=== PATIENT | female | born 1945 | race Caucasian/White ===

== ENCOUNTER 2016-08-01 15:43 | Inpatient (IN) | payer MEDICARE, BC, MEDICAID ==
[2016-08-01 16:25] LABS: #Basophils 0.1 thou/uL (0.0-0.2); #Eosinphils 0.1 thou/uL (0.0-0.7); #Lymphocytes 0.8 thou/uL (1.20-3.40); #Monocytes 1.3 thou/uL (0.11-0.59); %Basophils 0.8 % (0.0-1.0); %Eosinophils 0.7 % (0.0-10.0); %Monocytes 11.6 % (0.0-10.0); Hematocrit 35.9 % (36.0-47.0); Mean Platelet Volume 8.7 fL (7.4-10.4); Red Blood Cell (RBC) Count 3.83 mill/uL (4.20-5.40); White Blood Cell (WBC) Count 11.3 thou/uL (4.8-10.8)
[2016-08-01 16:32] LABS: PTT 27.1 SEC (22.9-36.1)
[2016-08-01 16:39] LABS: Lactic Acid - Sepsis 2.5 mmol/L (0.5-2.2)
[2016-08-01 16:42] LABS: ALT (SGPT) 27 U/L (0-55); AST (SGOT) 11 U/L (5-34); Alkaline Phosphatase 101 U/L (40-150); Anion Gap 16 mmol/L (10-20); BUN (Urea Nitrogen) 20 mg/dL (9.8-20.1); Bilirubin, Total 0.2 mg/dL (0.2-1.2); Calc. Creatinine Clearance 0 mL/min (70-130); Calcium 9.9 mg/dL (7.8-10.44); Carbon Dioxide 21 mmol/L (23-31); Chloride 103 mmol/L (98-107); Estimated GFR-MDRD 58; Globulin 3.1 g/dL (2.4-3.5); Protein, Total 6.5 g/dL (5.8-8.1)
[2016-08-01 17:22] LABS: Bacteria/HPF 1+ HPF (None Seen); Bilirubin Negative (Negative); Blood, Urine Trace (Negative); Glucose, Urine (Dipstick) Negative (Negative); Ketone, Urine Negative (Negative); Nitrite Positive (Negative); Protein, Urine (Dipstick) 100 mg/dL (Neg-Trace); RBC/HPF 0-3 HPF (0-3); Squamous Epithelial 0-3 HPF (0-3); Urobilinogen 0.2 mg/dL (0.2-1.0); WBC/HPF 21-50 HPF (0-3)
[2016-08-01] MEDS ORDERED: Sodium Chloride 0.9% 100 ML ONE (17:28)
[2016-08-01] MEDS ORDERED: cefTRIAXone\\ROCEPHIN 1 GM VIAL ONE (17:28)
--- NOTE | 2016-08-01 18:27 | ERRECORD ---
[facility] EMERGENCY RECORD HPI WEAK-DIZZY (16:09 JPIP) CHIEF COMPLAINT: Patient presents for evaluation of weakness, Patient presents for evaluation of dizziness, Patient presents for evaluation of has felt dizzy with some weakness for 2 days. HISTORIAN: History provided by patient, Additional history obtained from retirement, Additional history obtained from EMS. LOCATION: No localizing symptoms. QUALITY: Patient is alert and oriented to person, place and time, [place] coma score is 15. SEVERITY: Current severity of pain rated as 0/10. TIME COURSE: Sudden onset of symptoms, 2, days ago, There has been no change in the patient's symptoms over time, are constant. ASSOCIATED WITH: No associated chest pain, No associated headache, No associated nausea, No associated palpitations, No associated vomiting. EXACERBATED BY: Patient's condition exacerbated by exercise. RELIEVED BY: Patient's condition relieved by remaining still. ROS (16:11 JPIP) CONSTITUTIONAL: Historian denies chills, reports fatigue, denies fever, reports malaise. EYES: Historian denies vision changes. CARDIOVASCULAR: Historian denies chest pain, denies dyspnea on exertion, denies palpitations. RESPIRATORY: Historian denies cough, reports shortness of breath, denies wheezing. GI: Historian denies nausea, denies vomiting. GENITOURINARY FEMALE: Historian denies dysuria. MUSCULOSKELETAL: Historian denies arthralgias, denies myalgias. SKIN: Historian denies rash, denies skin changes, denies skin lesions. NEUROLOGIC: Historian reports dizziness, denies headache. NOTES: All systems reviewed, negative except as described above. PAST MEDICAL HISTORY MEDICAL HISTORY: Past medical history includes history of diabetes, Type II, Past medical history includes vascular disease history, peripheral vascular disease, Notes: DEMENTI, SLEEP APNEA, ANEMIA, OSTEOPOROSIS, GENERALIZED WEAKNESS, RLS, Flu vaccine up to date, Tetanus immunization up to date, Pneumococcal vaccine up to date, Past medical history includes history of hyperlipidemia, Past medical history includes history of hypertension. , CAD. (16:19 JPIP) Past medical history includes hematological history, Anemia, Past medical history includes history of diabetes, Type II, Past medical history includes vascular disease history, peripheral vascular disease, Notes: DEMENTI, SLEEP APNEA, ANEMIA, OSTEOPOROSIS, GENERALIZED WEAKNESS, RLS, Flu vaccine up to &a-1R&a+25V*p+0X*r9766G*c202B*c15G*c2P*p-0X&a-25V&a+1R Name: Clara Esposito : 1945 F71 MedRec: [id number] AcctNum: [id number] Prepared: ThuAug 01, 2016 18:25 by Interface Page 1 of 6 pMD [facility] EMERGENCY RECORD date, Tetanus immunization up to date, Pneumococcal vaccine up to date, Past medical history includes history of hyperlipidemia, Past medical history includes history of hypertension. , CAD. (17:20 JSMI) FEMALE SURGICAL HISTORY: bilateral HIP, Left KNEE, Surgical history of cholecystectomy, Surgical history of hysterectomy. (16:19 JPIP) bilateral HIP, Left KNEE, Surgical history of cholecystectomy, Surgical history of hysterectomy. (17:20 JSMI) PSYCHIATRIC HISTORY: Psychiatric history includes, anxiety, depression, no history of suicidal ideations, No history of suicide attempts, Psychiatric history includes history of hallucinations, Notes: AFTER TAKING AMBIEN. (16:19 JPIP) Psychiatric history includes, anxiety, depression, no history of suicidal ideations, No history of suicide attempts, Psychiatric history includes history of hallucinations, Notes: AFTER TAKING AMBIEN. (17:20 JSMI) SOCIAL HISTORY: Patient denies alcohol use, Patient denies drug use, Patient has no smoking history, Lives at home. (16:19 JPIP) Social History includes patient told me she is a smoker, however she reported to nursing staff she is not a smoker, old chart states no smoking history. (16:19 JPIP) Patient denies alcohol use, Patient denies drug use, Patient has no smoking history, Lives at home. (17:20 JSMI) NOTES: Nursing records reviewed, Medication list reviewed. (16:15 JPIP) KNOWN ALLERGIES zolpidem tartrate: Reaction: HALLUCINATIONS CURRENT MEDICATIONS Cymbalta: CAPSULE,DELAYED RELEASE (ENTERIC COATED) : Strength - 60 mg : ORAL Patient Dose: 2 times a day. (17:26 JSMI) Pamelor: CAPSULE : Strength - 25 mg : ORAL Patient Dose: once a day (at bedtime). (17:26 JSMI) trospium: TABLET : Strength - 20 mg : ORAL Patient Dose: 60 mg once a day. (17:28 JSMI) Penlac: SOLUTION, NON-ORAL : Strength - 8 % : TOPICAL Patient Dose: once a day. (17:28 JSMI) ferrous gluconate: TABLET : Strength - 324 mg (36 mg iron) : ORAL Patient Dose: 2 times a day. (17:29 JSMI) Xanax: TABLET : Strength - 0.25 mg : ORAL Patient Dose: As Needed.TID PRN. (17:30 JSMI) &a-1R&a+25V*p+0X*s2416F*c202B*c15G*c2P*p-0X&a-25V&a+1R Name: Clara Esposito : 1945 F71 MedRec: [id number] AcctNum: [id number] Prepared: ThuAug 01, 2016 18:25 by Interface Page 2 of 6 pMD [facility] EMERGENCY RECORD Tylenol Arthritis Pain: TABLET, EXTENDED RELEASE : Strength - 650 mg : ORAL Patient Dose: As Needed.1 Q 4 hours as needed for temp >100.4. (17:31 JSMI) Tylenol-Codeine #3: TABLET : Strength - 300 mg-30 mg : ORAL Patient Dose: 2 tab(s) 2 times a day. (17:32 JSMI) Spiriva with HandiHaler: CAPSULE, WITH INHALATION DEVICE : Strength - 18 mcg : INHALATION Patient Dose: 2 puff(s) once a day. (17:38 JSMI) Caltrate-600 + D Vit D3 (800): TABLET : Strength - 600 mg calcium (1,500 mg)-800 unit : ORAL Patient Dose: once a day. (17:43 JSMI) risperiDONE: TABLET : Strength - 0.5 mg : ORAL Patient Dose: once a day (at bedtime). (17:43 JSMI) Shiloh: TABLET : Strength - 180 mg : ORAL Patient Dose: As Needed.every 24 hours as needed for allergies. (17:44 JSMI) metFORMIN: TABLET : Strength - 500 mg : ORAL Patient Dose: 2 times a day. (17:44 JSMI) Tussin DM: SYRUP : Strength - 100 mg-10 mg/5 mL : ORAL Patient Dose: 10 mL Oral every 4 hours prn. (17:45 JSMI) Maalox: SUSPENSION, ORAL (FINAL DOSE FORM) : Strength - 200 mg-200 mg-20 mg/5 mL : ORAL Patient Dose: 30 mL Oral As Needed. (17:45 JSMI) Protonix: TABLET, DELAYED RELEASE (ENTERIC COATED) : Strength - 40 mg : ORAL Patient Dose: once a day. (17:46 JSMI) Systane: DROPS : Strength - 0.3 %-0.4 % : OPHTHALMIC Patient Dose: 2 gtt every 8 hours PRN. (17:47 JSMI) Plavix: TABLET : Strength - 75 mg : ORAL Patient Dose: once a day. (17:47 JSMI) aspirin: TABLET : Strength - 325 mg : ORAL Patient Dose: once a day. (17:47 JSMI) Miralax: POWDER (GRAM) : Strength - 17 gram/dose : ORAL Patient Dose: once a day. (17:59 JSMI) gabapentin: CAPSULE : Strength - 100 mg : ORAL Patient Dose: 2 times a day. (18:00 JSMI) CAPSULE : Strength - 300 mg : ORAL &a-1R&a+25V*p+0X*d3070E*c202B*c15G*c2P*p-0X&a-25V&a+1R Name: Clara Esposito : 1945 F71 MedRec: [id number] AcctNum: [id number] Prepared: ThuAug 01, 2016 18:25 by Interface Page 3 of 6 pMD [facility] EMERGENCY RECORD Patient Dose: Unknown. (18:00 JSMI) Lipitor: TABLET : Strength - 10 mg : ORAL Patient Dose: once a day (at bedtime). (18:00 JSMI) Restoril: CAPSULE : Strength - 15 mg : ORAL Patient Dose: once a day (at bedtime). (18:01 JSMI) Requip: TABLET : Strength - 0.25 mg : ORAL Patient Dose: 0.75 mg Oral once a day (at bedtime). (18:01 JSMI) Milk of Magnesia: SUSPENSION, ORAL (FINAL DOSE FORM) : Strength - 400 mg/5 mL : ORAL Patient Dose: As Needed. (18:02 JSMI) Dulcolax (bisacodyl): SUPPOSITORY, RECTAL : Strength - 10 mg : RECTAL Patient Dose: As Needed. (18:06 JSKY) diltiazem HCl: CAPSULE, EXT RELEASE 24 HR : Strength - 120 mg : ORAL Patient Dose: once a day. (18:07 JSKY) VITAL SIGNS VITAL SIGNS: BP: 134/63, Pulse: 95, Resp: 16, Temp: 99.5 (Oral), Pain: 0, O2 sat: 90 on Room Air, Time: 08/01/2016 15:47. (15:47 JSMI) BP: 120/66, Pulse: 93, Resp: 20, Pain: 0, O2 sat: 95 on 2L Oxygen, Time: 08/01/2016 16:42. (16:42 JSMI) BP: 121/64, Pulse: 94, Resp: 24, Pain: 0, O2 sat: 94 on ra, Time: 08/01/2016 16:50. (16:50 JSMI) PHYSICAL EXAM (16:13 [facility]) CONSTITUTIONAL: Vital signs reviewed, Patient afebrile, Pulse normal, Blood pressure normal, Respiratory rate normal, Patient appears, uncomfortable, Patient alert and oriented to person, place and time. HEAD: Head exam included findings of head atraumatic, normocephalic. EYES: Eye exam included findings of eyelids normal to inspection, Conjunctiva normal, Sclera normal, no periorbital ecchymosis, no periorbital edema, no periorbital erythema. ENT: Pharynx exam normal, not injected, Uvula exam normal, midline, no edema, Mouth exam included findings of, mucous membranes dry, thick dry mucus with old blood present present, Teeth with, dentures. NECK: Neck exam included findings of normal range of motion, Trachea midline, no carotid bruits, no jugular venous distention, no cervical adenopathy, no tenderness. RESPIRATORY CHEST: Respiratory exam included findings of, mild respiratory distress, Breath sounds not clear, No wheezing, Rales present, to bilateral lower lobes, No rhonchi, Breath sounds not absent, Breath &a-1R&a+25V*p+0X*r8980Z*c202B*c15G*c2P*p-0X&a-25V&a+1R Name: Clara Esposito : 1945 F71 MedRec: [id number] AcctNum: [id number] Prepared: ThuAug 01, 2016 18:25 by Interface Page 4 of 6 pMD [facility] EMERGENCY RECORD sounds diminished. CARDIOVASCULAR: Cardiovascular exam included findings of heart rate regular rate and rhythm, Heart sounds normal. ABDOMEN FEMALE: Abdominal exam included findings of abdomen nontender, Liver normal, Spleen normal, no distension, no mass, no pulsatile masses, no peritoneal signs, no rigidity, no guarding, no rebound. BACK: Costovertebral angle tenderness, on the left. UPPER EXTREMITY: Upper extremity exam included findings of inspection normal, Range of motion normal. LOWER EXTREMITY: Lower extremity exam included findings of inspection normal, Range of motion normal, no edema. NEURO: Power coma scale 15, Speech normal, no nystagmus. SKIN: Skin exam included findings of skin warm, dry, and normal in color. LYMPHATIC: Lymphatic exam included findings of cervical nodes normal, Submandibular normal. PSYCHIATRIC: Psychiatric exam included findings of patient oriented to person place and time, Affect, flat. EKG INTERPRETATION (16:24 JPIP) MONITOR STRIP: supervisor twisting department strip interpreted by Emergency Department Physician, Monitor strip shows normal sinus rhythm, with no ectopics. 12 LEAD EKG INTERPRETATION: 12 lead EKG interpreted by Emergency Department Physician at time of study, 12 lead EKG shows normal sinus rhythm, Rate (beats per minute): 94, with no ectopics, Interpretation: normal EKG, Conduction normal, ST segments normal, T waves, inverted in leads 1-2, [place] normal, Clinical impression:, non-specific EKG. RADIOLOGYINTERPRETATION (17:21 JPIP) CHEST: Films of the chest show, interstitial infiltrate, no pneumothorax, no hemothorax, no pleural effusion, mild congestive heart failure. NETWORK TECHNOLOGY INSTRUCTOR: Preliminary review of x-rays by, ED Physician. MEDICATION ADMINISTRATION SUMMARY Drug Name: Rocephin injection, Dose Ordered: 2 g, Route: IV Piggy Back, Status: Given, Time: 17:39 08/01/2016, Drug Name: Normal Saline, Dose Ordered: 1000 mL/hr, Route: IV Fluid Infusion, Status: Given, Time: 17:22 08/01/2016, Detailed record available in Medication Service section. DOCTOR NOTES (17:40 JPIP) TEXT: discussed findings with patient and her son. He states she's had this happen "a couple of times before". &a-1R&a+25V*p+0X*q4500B*c202B*c15G*c2P*p-0X&a-25V&a+1R Name: Clara Esposito : 1945 71 MedRec: [id number] AcctNum: [id number] Prepared: ThuAug 01, 2016 18:25 by Interface Page 5 of 6 pMD [facility] EMERGENCY RECORD PROBLEM LIST No recorded problems DIAGNOSIS (17:39 JPIP) FINAL: PRIMARY: Acute cystitis without hematuria, ADDITIONAL: AMS, RO sepsis. PRESCRIPTION No recorded prescriptions DISPOSITION PATIENT: Disposition Type: Admit, Disposition: [facility], Disposition Transport: Stretcher, Condition: Improved. (17:39 JPIP) Patient left the department. (18:20 AHOO) Becker: AHOO=LEYDI Miller, October JPIP=DO Springer Joseph JSMI=SETH Varma, Kayla &a-1R&a+25V*p+0X*l9342H*c202B*c15G*c2P*p-0X&a-25V&a+1R Name: Clara Esposito : 1945 F71 MedRec: [id number] AcctNum: [id number] Prepared: ThuAug 01, 2016 18:25 by Interface Page 6 of 6 pMD MTDD
--- NOTE | 2016-08-01 18:33 | PICIS ---
[facility] EMERGENCY RECORD COMMUNICATIONS (17:43 JP) COMMUNICATIONS: Physician, contacted/paged at 1730, Reason for notification admission, Dr Sales accepts. TRIAGE (15:49 JSMI) PATIENT: NAME: Clara Esposito, AGE: 71, GENDER: female, : Thu1945, TIME OF GREET: ThuAug 01, 2016 15:43, PREFERRED LANGUAGE: Emirati, ETHNICITY: Not or , ECODE BILLING MAP: [facility], SSN: [id number], Zip Code: [address], KG WEIGHT: 68.04, PHONE: , , , PERSON ID: [id number], PAYMENT: [facility] Medicare, PCP: MD Damari, Mouna. (15:49 JSMI) COMPLAINT: AMS. (15:49 JSMI) ADMISSION: URGENCY: 3 Urgent, ADMISSION SOURCE: [facility], TRANSPORT: AMBULANCE - [facility], BED: TRIAGE. (15:49 JSMI) ASSESSMENT: Assessment: PT PRESENTS AWAKE ALERT AND ORIENTED. SKIN PALE WARM AND DRY., Symptoms began 07/30/2016. (17:20 JSMI) SIRS SCORING: Heart Rate 55-109 (0), Temp range 96.8-101.1 (0), respiratory rate 12-24 (0), Mental Status altered: no (0), Infection or Suspected Infection: No. (17:20 JSMI) PROVIDERS: TRIAGE NURSE: Jamee Varma RN. (15:49 JSMI) VITAL SIGNS: BP 134/63, Pulse 95, Resp 16, Temp 99.5, (Oral), Pain 0, O2 Sat 90, on Room Air, Time 08/01/2016 15:47. (15:47 JSMI) KNOWN ALLERGIES zolpidem tartrate: Reaction: HALLUCINATIONS CURRENT MEDICATIONS Cymbalta: CAPSULE,DELAYED RELEASE (ENTERIC COATED) : Strength - 60 mg : ORAL Patient Dose: 2 times a day. (17:26 JSMI) Pamelor: CAPSULE : Strength - 25 mg : ORAL Patient Dose: once a day (at bedtime). (17:26 JSMI) trospium: TABLET : Strength - 20 mg : ORAL Patient Dose: 60 mg once a day. (17:28 JSMI) Penlac: SOLUTION, NON-ORAL : Strength - 8 % : TOPICAL Patient Dose: once a day. (17:28 JSMI) ferrous gluconate: TABLET : Strength - 324 mg (36 mg iron) : ORAL Patient Dose: 2 times a day. (17:29 JSMI) Xanax: TABLET : Strength - 0.25 mg : ORAL Patient Dose: As Needed.TID PRN. (17:30 JSMI) Tylenol Arthritis Pain: TABLET, EXTENDED RELEASE : Strength - 650 mg : ORAL Patient Dose: As Needed.1 Q 4 hours as needed for temp >100.4. (17:31 JSMI) &a-1R&a+25V*p+0X*l6392I*c202B*c15G*c2P*p-0X&a-25V&a+1R Name: Clara Esposito : 1945 F71 MedRec: [id number] AcctNum: [id number] Prepared: ThuAug 01, 2016 18:31 by Interface Page 1 of 13 pMD [facility] EMERGENCY RECORD Tylenol-Codeine #3: TABLET : Strength - 300 mg-30 mg : ORAL Patient Dose: 2 tab(s) 2 times a day. (17:32 JSMI) Spiriva with HandiHaler: CAPSULE, WITH INHALATION DEVICE : Strength - 18 mcg : INHALATION Patient Dose: 2 puff(s) once a day. (17:38 JSMI) Caltrate-600 + D Vit D3 (800): TABLET : Strength - 600 mg calcium (1,500 mg)-800 unit : ORAL Patient Dose: once a day. (17:43 JSMI) risperiDONE: TABLET : Strength - 0.5 mg : ORAL Patient Dose: once a day (at bedtime). (17:43 JSMI) Shiloh: TABLET : Strength - 180 mg : ORAL Patient Dose: As Needed.every 24 hours as needed for allergies. (17:44 JSMI) metFORMIN: TABLET : Strength - 500 mg : ORAL Patient Dose: 2 times a day. (17:44 JSMI) Tussin DM: SYRUP : Strength - 100 mg-10 mg/5 mL : ORAL Patient Dose: 10 mL Oral every 4 hours prn. (17:45 JSMI) Maalox: SUSPENSION, ORAL (FINAL DOSE FORM) : Strength - 200 mg-200 mg-20 mg/5 mL : ORAL Patient Dose: 30 mL Oral As Needed. (17:45 JSMI) Protonix: TABLET, DELAYED RELEASE (ENTERIC COATED) : Strength - 40 mg : ORAL Patient Dose: once a day. (17:46 JSMI) Systane: DROPS : Strength - 0.3 %-0.4 % : OPHTHALMIC Patient Dose: 2 gtt every 8 hours PRN. (17:47 JSMI) Plavix: TABLET : Strength - 75 mg : ORAL Patient Dose: once a day. (17:47 JSMI) aspirin: TABLET : Strength - 325 mg : ORAL Patient Dose: once a day. (17:47 JSMI) Miralax: POWDER (GRAM) : Strength - 17 gram/dose : ORAL Patient Dose: once a day. (17:59 JSMI) gabapentin: CAPSULE : Strength - 100 mg : ORAL Patient Dose: 2 times a day. (18:00 JSMI) CAPSULE : Strength - 300 mg : ORAL Patient Dose: Unknown. (18:00 JSMI) Lipitor: TABLET : Strength - 10 mg : ORAL Patient Dose: once a day (at bedtime). (18:00 JSMI) &a-1R&a+25V*p+0X*t6177J*c202B*c15G*c2P*p-0X&a-25V&a+1R Name: Clara Esposito : 1945 F71 MedRec: [id number] AcctNum: [id number] Prepared: ThuAug 01, 2016 18:31 by Interface Page 2 of 13 pMD [facility] EMERGENCY RECORD Restoril: CAPSULE : Strength - 15 mg : ORAL Patient Dose: once a day (at bedtime). (18:01 JSMI) Requip: TABLET : Strength - 0.25 mg : ORAL Patient Dose: 0.75 mg Oral once a day (at bedtime). (18:01 JSMI) Milk of Magnesia: SUSPENSION, ORAL (FINAL DOSE FORM) : Strength - 400 mg/5 mL : ORAL Patient Dose: As Needed. (18:02 JSMI) Dulcolax (bisacodyl): SUPPOSITORY, RECTAL : Strength - 10 mg : RECTAL Patient Dose: As Needed. (18:06 JSMI) diltiazem HCl: CAPSULE, EXT RELEASE 24 HR : Strength - 120 mg : ORAL Patient Dose: once a day. (18:07 JSMI) VITAL SIGNS VITAL SIGNS: BP: 134/63, Pulse: 95, Resp: 16, Temp: 99.5 (Oral), Pain: 0, O2 sat: 90 on Room Air, Time: 08/01/2016 15:47. (15:47 JSMI) BP: 120/66, Pulse: 93, Resp: 20, Pain: 0, O2 sat: 95 on 2L Oxygen, Time: 08/01/2016 16:42. (16:42 JSMI) BP: 121/64, Pulse: 94, Resp: 24, Pain: 0, O2 sat: 94 on ra, Time: 08/01/2016 16:50. (16:50 JSMI) NURSING ASSESSMENT: FALL RISK (17:59 AHOO) FALL RISK: Bed rest greater than 2 days (5), Use of level of consciousness altering agents with mentation or cognitive changes (3), Impaired mobility (3), Neurologic diagnosis (3), Elimination problems (3), Confusion (3), Total score 20, Fall risk. HENDR[place] II FALL RISK: dizziness or vertigo(1), Benzodiazepines administered(1), Total score 2, Score less than 5. Patient not high risk for falls. NURSING ASSESSMENT: SKIN (18:00 AHOO) CONSTITUTIONAL: Complex assessment performed, Patient appears comfortable, Patient cooperative, Patient alert, Oriented to person, place and time, Skin warm, Skin dry, Skin normal in color, Mucous membranes pink, Mucous membranes moist, Patient is well-groomed, Patient complains of AMS, UTI. RAD SCALE: (3) Sensory perception slightly limited, (3) Skin is occasionally moist, (2) Patient is chairfast, (2) Very limited mobility, (3) Adequate nutrition, (2) Patient has potential problem moving, Rad Risk Total: 15. NURSING PROCEDURE: ADMISSION (18:10 AHOO) ADMISSION: Patient admitted to a medical-surgical unit, room &a-1R&a+25V*p+0X*e9255A*c202B*c15G*c2P*p-0X&a-25V&a+1R Name: Clara Esposito : 1945 F71 MedRec: [id number] AcctNum: [id number] Prepared: ThuAug 01, 2016 18:31 by Interface Page 3 of 13 pMD [facility] EMERGENCY RECORD number 104, Notes: TAKEN TO ROOM 104 VIA STRETCHER, REPORT WAS CALLED TO THE FLOOR BY JAMEE VARMA RN. NURSING PROCEDURE: BEDSIDE SIRS TESTING (17:58 AHOO) SCORES: Heart Rate 55-109 (0), Temp range 96.8-101.1 (0), respiratory rate 12-24 (0), Latest WBC 3-14.9 (0), Mental Status altered: no (0), Infection or Suspected Infection: No. NURSING PROCEDURE: EKG CHART (16:20 AHOO) PATIENT IDENTIFIER: Patient actively involved in identification process, Patient's identity verified by patient stating name, Patient's identity verified by patient stating date, Patient's identity verified by hospital ID bracelet, Patient's identity verified by family member. EKG: EKG indicated for AMS, 12 lead EKG performed on the left chest, done by JAMEE VARMA RN, first EKG. FOLLOW-UP: After procedure, EKG for interpretation given to Dr. DR SPRINGER. NURSING PROCEDURE: IV PATIENT IDENITIFIER: Patient actively involved in identification process, Patient's identity verified by patient stating name, Patient's identity verified by patient stating date, Patient's identity verified by hospital ID bracelet. (16:35 AHOO) IV SITE 1: IV therapy indicated for medication administration, IV established, to the right antecubital, using a 20 gauge catheter, in one attempt, Saline lock established, Flushed with normal saline (mls): 10ML, Blood cultures drawn at time of placement, labeled in the presence of the patient and sent to lab. (16:35 AHOO) FOLLOW-UP SITE 1: After procedure, sterile transparent dressing applied, After procedure, no drainage at IV site, After procedure, no swelling at IV site, After procedure, no redness at IV site, Notes: IV PATENT AND NO BRUISING, BLEEDING OR EDEMA NOTED. (18:10 AHOO) NURSING PROCEDURE: URINE COLLECTION (16:50 [facility]) URINE COLLECTION FEMALE: Urine collected by straight cath, in one attempt, urine yellow in color, and cloudy, Specimen collected, labeled in the presence of the patient and sent to lab. VITAL SIGNS: BP: 121, / 64, Pulse: 94, Resp: 24, Pain: 0, O2 sat: 94, on: ra. ORDER DETAILS Order Name: Acclauraeck, Status: Done, Time: 16:11 08/01/2016, User: RUSS, - Ordered for: DO Springer Joseph, - Entered by: DO Springer Joseph - ThuAug 01, 2016 16:00, - Quantity: 1, Order Name: B type Natriuretic Peptide, Status: Active, Time: 16:01 &a-1R&a+25V*p+0X*b4541P*c202B*c15G*c2P*p-0X&a-25V&a+1R Name: ElisjoaoClara perry Kathleen : 1945 F71 MedRec: [id number] AcctNum: [id number] Prepared: ThuAug 01, 2016 18:31 by Interface Page 4 of 13 pMD [facility] EMERGENCY RECORD 08/01/2016, User: ABHIJIT, - Ordered for: DO Springer Joseph, - Entered by: DO Springer Joseph - ThuAug 01, 2016 16:01, - Quantity: 1, Order Name: CARDIAC TECH ED, Status: Done, Time: 16:11 08/01/2016, User: RUSS, - Ordered for: DO Springer Joseph, - Entered by: DO Springer Joseph - ThuAug 01, 2016 16:02, - Quantity: 1, Order Name: Cardiac Profile w/CKMB & Troponin - I, Status: Active, Time: 16:00 08/01/2016, User: ABHIJIT, - Ordered for: DO Springer Joseph, - Entered by: DO Springer Joseph - ThuAug 01, 2016 16:00, - Quantity: 1, Order Name: CBC with Differential, Status: Active, Time: 16:00 08/01/2016, User: ABHIJIT, - Ordered for: DO Springer Joseph, - Entered by: DO Springer Joseph - ThuAug 01, 2016 16:00, - Quantity: 1, Order Name: Comprehensive Metabolic Panel, Status: Active, Time: 16:00 08/01/2016, User: ABHIJIT, - Ordered for: DO Springer Joseph, - Entered by: DO Springer Joseph - ThuAug 01, 2016 16:00, - Quantity: 1, Order Name: Culture, Blood, Status: Active, Time: 16:00 08/01/2016, User: ABHIJIT, - Ordered for: DO Springer Joseph, - Entered by: DO Springer Joseph - ThuAug 01, 2016 16:00, - Quantity: 1, Order Name: Culture, Urine, Status: Active, Time: 16:00 08/01/2016, User: ABHIJIT, - Ordered for: DO Springer Joseph, - Entered by: DO Springer Joseph - ThuAug 01, 2016 16:00, - Quantity: 1, Order Name: EKG 12 Lead in Emergency Room, Status: Active, Time: 16:00 08/01/2016, User: ABHIJIT, - Ordered for: DO Springer Joseph, - Entered by: DO Springer Joseph - ThuAug 01, 2016 16:00, - Quantity: 1, Order Name: ERRT Oxygen Usage ER, Status: Active, Time: 16:02 08/01/2016, User: ABHIJIT, - Ordered for: DO Springer Joseph, - Entered by: DO Springer Joseph - ThuAug 01, 2016 16:02, - Quantity: 1, Order Name: ERRT Pulse Oximeter ER, Status: Active, Time: 16:00 08/01/2016, User: ABHIJIT, - Ordered for: DO Springer Joseph, - Entered by: DO Springer Joseph - ThuAug 01, 2016 16:00, - Quantity: 1, Order Name: Lactic Acid with repeat, Status: Active, Time: 16:01 &a-1R&a+25V*p+0X*q2659L*c202B*c15G*c2P*p-0X&a-25V&a+1R Name: Clara Esposito : 1945 F71 MedRec: [id number] AcctNum: [id number] Prepared: ThuAug 01, 2016 18:31 by Interface Page 5 of 13 D [facility] EMERGENCY RECORD 08/01/2016, User: ABHIJIT, - Ordered for: DO Springer Joseph, - Entered by: DO Springer Joseph - ThuAug 01, 2016 16:01, - Quantity: 1, Order Name: Protime with INR, Status: Active, Time: 16:02 08/01/2016, User: ABHIJIT, - Ordered for: DO Springer Joseph, - Entered by: DO Springer Joseph - ThuAug 01, 2016 16:02, - Quantity: 1, Order Name: PTT, Status: Active, Time: 16:02 08/01/2016, User: ABHIJIT, - Ordered for: DO Springer Joseph, - Entered by: DO Springer Joseph - ThuAug 01, 2016 16:02, - Quantity: 1, Order Name: SALINE LOCK, Status: Done, Time: 16:11 08/01/2016, User: RUSS, - Ordered for: DO Springer Joseph, - Entered by: DO Springer Joseph - ThuAug 01, 2016 16:00, - Quantity: 1, Order Name: Urinalysis w/ Rflx Microscopic, Status: Active, Time: 16:00 08/01/2016, User: ABHIJIT, - Ordered for: DO Springer Joseph, - Entered by: DO Springer Joseph - ThuAug 01, 2016 16:00, - Quantity: 1, Order Name: XR Chest 1 View Portable, Status: Active, Time: 16:00 08/01/2016, User: ABHIJIT, - Ordered for: DO Springer Joseph, - Entered by: DO Springer Joseph - ThuAug 01, 2016 16:00, - Quantity: 1. MEDICATION ADMINISTRATION SUMMARY Drug Name: Rocephin injection, Dose Ordered: 2 g, Route: IV Piggy Back, Status: Given, Time: 17:39 08/01/2016, Drug Name: Normal Saline, Dose Ordered: 1000 mL/hr, Route: IV Fluid Infusion, Status: Given, Time: 17:22 08/01/2016, Detailed record available in Medication Service section. MEDICATION SERVICE Normal Saline: Order: Normal Saline (0.9 % sodium chloride) - Dose: 1000 mL/hr : IV Fluid Infusion Schedule: Now Ordered by: Andres Springer DO Entered by: Andres Springer DO ThuAug 01, 2016 17:18 , Acknowledged by: Kathrine Miller LVN ThuAug 01, 2016 17:18 Documented as given by: Kathrine Miller LVN ThuAug 01, 2016 17:22 Patient, Medication, Dose, Route and Time verified prior to administration. Amount given: 1 L, IV SITE #1 IV fluids established for hydration, IV SITE #1 into right antecubital, IV SITE #1 1st bag hung, IV SITE #1 bolus of 1000 ml established, via gravity tubing, Catheter &a-1R&a+25V*p+0X*y2021D*c202B*c15G*c2P*p-0X&a-25V&a+1R Name: Clara Esposito : 1945 F71 MedRec: [id number] AcctNum: [id number] Prepared: ThuAug 01, 2016 18:31 by Interface Page 6 of 13 pMD [facility] EMERGENCY RECORD placement confirmed via flush prior to administration, IV site without signs or symptoms of infiltration during medication administration, No swelling during administration, No drainage during administration, IV flushed after administration, Correct patient, time, route, dose and medication confirmed prior to administration, Patient advised of actions and side-effects prior to administration, Allergies confirmed and medications reviewed prior to administration, Patient in position of comfort, Side rails up, Cart in lowest position, Family at bedside. : Follow Up : Response assessment performed, No signs or symptoms of allergic reaction noted, _IV SITE #1:_, IV fluid infusion continued upon transfer from emergency department, on ThuAug 01, 2016 18:10, 50 minutes, ., Total amount infused: 500ML. (18:10 OO) Rocephin injection: Order: Rocephin injection (ceftriaxone sodium) - Dose: 2 g : IV Piggy Back Schedule: Now Ordered by: Andres Springer DO Entered by: Andres Springre DO ThuAug 01, 2016 17:17 , Acknowledged by: Kathrine Miller LVN ThuAug 01, 2016 17:18 Documented as given by: Kathrine Miller LVN ThuAug 01, 2016 17:39 Patient, Medication, Dose, Route and Time verified prior to administration. IV SITE #1 IVPB or drip, initial infusion, IVPB mixed in: 100ml, Fluid: 0.9NS, via pump tubing, Catheter placement confirmed via flush prior to administration, IV site without signs or symptoms of infiltration during medication administration, No swelling during administration, No drainage during administration, IV flushed after administration, Correct patient, time, route, dose and medication confirmed prior to administration, Patient advised of actions and side-effects prior to administration, Allergies confirmed and medications reviewed prior to administration, Patient in position of comfort, Side rails up, Cart in lowest position, Family at bedside. : Follow Up : Response assessment performed, No signs or symptoms of allergic reaction noted, _IV SITE #1:_, Medication infusion discontinued, on ThuAug 01, 2016 18:10, 35 minutes, ., Total amount infused: 100ML, IV Line flushed after administration. (18:10 AHOO) HPI WEAK-DIZZY (16:09 JPIP) CHIEF COMPLAINT: Patient presents for evaluation of weakness, Patient presents for evaluation of dizziness, Patient presents for evaluation of has felt dizzy with some weakness for 2 days. HISTORIAN: History provided by patient, Additional history obtained from jail, Additional history obtained from EMS. LOCATION: No localizing symptoms. QUALITY: Patient is alert and oriented to person, place and time, [place] coma score is 15. SEVERITY: Current severity of pain rated as 0/10. TIME COURSE: Sudden onset of symptoms, &a-1R&a+25V*p+0X*l8742Y*c202B*c15G*c2P*p-0X&a-25V&a+1R Name: Clara Esposito : 1945 F71 MedRec: [id number] AcctNum: [id number] Prepared: ThuAug 01, 2016 18:31 by Interface Page 7 of 13 pMD [facility] EMERGENCY RECORD 2, days ago, There has been no change in the patient's symptoms over time, are constant. ASSOCIATED WITH: No associated chest pain, No associated headache, No associated nausea, No associated palpitations, No associated vomiting. EXACERBATED BY: Patient's condition exacerbated by exercise. RELIEVED BY: Patient's condition relieved by remaining still. ROS (16:11 JPIP) CONSTITUTIONAL: Historian denies chills, reports fatigue, denies fever, reports malaise. EYES: Historian denies vision changes. CARDIOVASCULAR: Historian denies chest pain, denies dyspnea on exertion, denies palpitations. RESPIRATORY: Historian denies cough, reports shortness of breath, denies wheezing. GI: Historian denies nausea, denies vomiting. GENITOURINARY FEMALE: Historian denies dysuria. MUSCULOSKELETAL: Historian denies arthralgias, denies myalgias. SKIN: Historian denies rash, denies skin changes, denies skin lesions. NEUROLOGIC: Historian reports dizziness, denies headache. NOTES: All systems reviewed, negative except as described above. PAST MEDICAL HISTORY MEDICAL HISTORY: Past medical history includes history of diabetes, Type II, Past medical history includes vascular disease history, peripheral vascular disease, Notes: DEMENTI, SLEEP APNEA, ANEMIA, OSTEOPOROSIS, GENERALIZED WEAKNESS, RLS, Flu vaccine up to date, Tetanus immunization up to date, Pneumococcal vaccine up to date, Past medical history includes history of hyperlipidemia, Past medical history includes history of hypertension. , CAD. (16:19 JPIP) Past medical history includes hematological history, Anemia, Past medical history includes history of diabetes, Type II, Past medical history includes vascular disease history, peripheral vascular disease, Notes: DEMENTI, SLEEP APNEA, ANEMIA, OSTEOPOROSIS, GENERALIZED WEAKNESS, RLS, Flu vaccine up to date, Tetanus immunization up to date, Pneumococcal vaccine up to date, Past medical history includes history of hyperlipidemia, Past medical history includes history of hypertension. , CAD. (17:20 JSMI) FEMALE SURGICAL HISTORY: bilateral HIP, Left KNEE, Surgical history of cholecystectomy, Surgical history of hysterectomy. (16:19 JPIP) bilateral HIP, Left KNEE, Surgical history of cholecystectomy, Surgical history of hysterectomy. (17:20 JSMI) PSYCHIATRIC HISTORY: Psychiatric history includes, anxiety, depression, no history of suicidal ideations, No history of suicide &a-1R&a+25V*p+0X*v1214A*c202B*c15G*c2P*p-0X&a-25V&a+1R Name: Clara Esposito : 1945 F71 MedRec: [id number] AcctNum: [id number] Prepared: ThuAug 01, 2016 18:31 by Interface Page 8 of 13 pMD [facility] EMERGENCY RECORD attempts, Psychiatric history includes history of hallucinations, Notes: AFTER TAKING AMBIEN. (16:19 JPIP) Psychiatric history includes, anxiety, depression, no history of suicidal ideations, No history of suicide attempts, Psychiatric history includes history of hallucinations, Notes: AFTER TAKING AMBIEN. (17:20 JSMI) SOCIAL HISTORY: Patient denies alcohol use, Patient denies drug use, Patient has no smoking history, Lives at home. (16:19 JPIP) Social History includes patient told me she is a smoker, however she reported to nursing staff she is not a smoker, old chart states no smoking history. (16:19 JPIP) Patient denies alcohol use, Patient denies drug use, Patient has no smoking history, Lives at home. (17:20 JSMI) NOTES: Nursing records reviewed, Medication list reviewed. (16:15 JPIP) PHYSICAL EXAM (16:13 JPIP) CONSTITUTIONAL: Vital signs reviewed, Patient afebrile, Pulse normal, Blood pressure normal, Respiratory rate normal, Patient appears, uncomfortable, Patient alert and oriented to person, place and time. HEAD: Head exam included findings of head atraumatic, normocephalic. EYES: Eye exam included findings of eyelids normal to inspection, Conjunctiva normal, Sclera normal, no periorbital ecchymosis, no periorbital edema, no periorbital erythema. ENT: Pharynx exam normal, not injected, Uvula exam normal, midline, no edema, Mouth exam included findings of, mucous membranes dry, thick dry mucus with old blood present present, Teeth with, dentures. NECK: Neck exam included findings of normal range of motion, Trachea midline, no carotid bruits, no jugular venous distention, no cervical adenopathy, no tenderness. RESPIRATORY CHEST: Respiratory exam included findings of, mild respiratory distress, Breath sounds not clear, No wheezing, Rales present, to bilateral lower lobes, No rhonchi, Breath sounds not absent, Breath sounds diminished. CARDIOVASCULAR: Cardiovascular exam included findings of heart rate regular rate and rhythm, Heart sounds normal. ABDOMEN FEMALE: Abdominal exam included findings of abdomen nontender, Liver normal, Spleen normal, no distension, no mass, no pulsatile masses, no peritoneal signs, no rigidity, no guarding, no rebound. BACK: Costovertebral angle tenderness, on the left. UPPER EXTREMITY: Upper extremity exam included findings of inspection normal, Range of motion normal. LOWER EXTREMITY: Lower extremity exam included findings of &a-1R&a+25V*p+0X*a7461W*c202B*c15G*c2P*p-0X&a-25V&a+1R Name: Clara Esposito : 1945 F71 MedRec: [id number] AcctNum: [id number] Prepared: ThuAug 01, 2016 18:31 by Interface Page 9 of 13 pMD [facility] EMERGENCY RECORD inspection normal, Range of motion normal, no edema. NEURO: Power coma scale 15, Speech normal, no nystagmus. SKIN: Skin exam included findings of skin warm, dry, and normal in color. LYMPHATIC: Lymphatic exam included findings of cervical nodes normal, Submandibular normal. PSYCHIATRIC: Psychiatric exam included findings of patient oriented to person place and time, Affect, flat. LAB INTERPRETATION (17:39 JPIP) INTERPRETATION: I reviewed the lab results, All labs normal except as noted below, CBC abnormal, White blood cell count elevated, Hemoglobin decreased, Hematocrit decreased, Neutrophils elevated, Chemistry abnormal, Glucose elevated, Bicarbonate decreased, Cardiac enzymes normal, Liver functions normal, PT normal, PTT normal, Urinalysis abnormal, positive for leukocytes, positive for nitrites, positive for bacteria, positive for protein, Lactate abnormal-elevated, elevated. EVENTS TRANSFER: Triage to Emergency Triage. (ThuAug 01, 2016 15:49 JSMI) Emergency Triage to Emergency Room -04. (16:11 JSMI) Removed from Emergency Emergency Room -04. (18:20 [facility]) RADIOLOGYINTERPRETATION (17:21 JPIP) CHEST: Films of the chest show, interstitial infiltrate, no pneumothorax, no hemothorax, no pleural effusion, mild congestive heart failure. 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 EKG INTERPRETATION (16:24 JPIP) MONITOR STRIP: clinical research monitor strip interpreted by Emergency Department Physician, Monitor strip shows normal sinus rhythm, with no ectopics. 12 LEAD EKG INTERPRETATION: 12 lead EKG interpreted by Emergency Department Physician at time of study, 12 lead EKG shows normal sinus rhythm, Rate (beats per minute): 94, with no ectopics, Interpretation: normal EKG, Conduction normal, ST segments normal, T waves, inverted in leads 1-2, [place] normal, Clinical impression:, non-specific EKG. O2SAT INTERPRETATION O2SAT: Continuous pulse oximetry, Oxygen saturation 90%, on room air, Oxygen saturation interpretation: Hypoxic, Intervention required: patient observed, Intervention required: Oxygen administration. (16:02 JPIP) Continuous pulse oximetry, Oxygen saturation 96%, on 2L, via nasal &a-1R&a+25V*p+0X*l9758W*c202B*c15G*c2P*p-0X&a-25V&a+1R Name: Clara Esposito : 1945 F71 MedRec: [id number] AcctNum: [id number] Prepared: ThuAug 01, 2016 18:31 by Interface Page 10 of 13 pMD [facility] EMERGENCY RECORD cannula, Oxygen saturation interpretation: Normal, Intervention required: patient observed, Intervention required: Oxygen administration. (16:06 JPIP) DOCTOR NOTES (17:40 JPIP) TEXT: discussed findings with patient and her son. He states she's had this happen "a couple of times before". PROBLEM LIST No recorded problems DIAGNOSIS (17:39 JPIP) FINAL: PRIMARY: Acute cystitis without hematuria, ADDITIONAL: AMS, RO sepsis. DISPOSITION PATIENT: Disposition Type: Admit, Disposition: [facility], Disposition Transport: Stretcher, Condition: Improved. (17:39 JPIP) Patient left the department. (18:20 AHOO) PRESCRIPTION No recorded prescriptions IMAGING *EKG: Image captured from scanner. (16:48 AHOO) ADMISSION ORDERS: Image captured from scanner. (17:58 AHOO) *SUPPLY CHARGE SHEET: Image captured from scanner. (18:16 AHOO) RESULTS LABORATORY: CBC with Differential Collection DT: ThuAug 01, 2016 16:23, *White Blood Cell (WBC) Count 11.3 - H thou/uL, Range (4.8-10.8), *Red Blood Cell (RBC) Count 3.83 - L mill/uL, Range (4.20-5.40), *Hemoglobin 11.3 - L g/dL, Range (12.0-16.0), *Hematocrit 35.9 - L %, Range (36.0-47.0), Mean Corpuscular Volume 93.6 fl, Range (81.0-99.0), Mean Corpuscular Hemoglobin 29.4 pg, Range (27.0-31.0), *Mean Corpuscular HGB CONC 31.4 - L g/dL, Range (32.0-36.0), RBC Distribution Width 11.8 %, Range (11.5-14.5), Platelet Count 351 thou/uL, Range (130-400), Mean Platelet Volume 8.7 fL, Range (7.4-10.4), *%Neutrophils 79.6 - H %, Range (42.0-75.0), *%Lymphocytes 7.3 - L %, Range (21.0-51.0), *%Monocytes 11.6 - H %, Range (0.0-10.0), %Eosinophils 0.7 %, Range (0.0-10.0), %Basophils 0.8 %, Range (0.0-1.0), *#Neutrophils 9.0 - H thou/uL, Range (1.40-6.50), &a-1R&a+25V*p+0X*d8904T*c202B*c15G*c2P*p-0X&a-25V&a+1R Name: Clara Esposito : 1945 F71 MedRec: [id number] AcctNum: [id number] Prepared: ThuAug 01, 2016 18:31 by Interface Page 11 of 13 pMD [facility] EM[facility]GENCY RECORD *#Lymphocytes 0.8 - L thou/uL, Range (1.20-3.40), *#Monocytes 1.3 - H thou/uL, Range (0.11-0.59), #Eosinphils 0.1 thou/uL, Range (0.0-0.7), #Basophils 0.1 thou/uL, Range (0.0-0.2). (16:30 JPIP) Lactic Acid for Sepsis Collection DT: ThuAug 01, 2016 16:23, *Lactic Acid - Sepsis 2.5 - H mmol/L, Range (0.5-2.2). (16:44 JPIP) PTT Collection DT: ThuAug 01, 2016 16:23, See comment below , Anticoagulant? NONE Medical Necessity SUSPECT COAGULOPATHY , PTT 27.1 SEC, Range (22.9-36.1). (16:45 JPIP) Protime with INR Collection DT: ThuAug 01, 2016 16:23, See comment below , Anticoagulant? NONE Medical Necessity SUSPECT COAGULOPATHY , Prothrombin Time 13.0 SEC, Range (12.0-14.7), INR-International Normal Ratio 1.0 , ATTENTION: READ CAREFULLY , The, recommended therapeutic ranges for oral anticoagulant treatments are: , , Low Intensity: 1.5 - 2.0 Moderate Intensity: 2.0, - 3.0 High Intensity (1): 2.5 - 3.5 High, Intensity (2): 3.0 - 4.0 CRITICAL: >, 4.0 . (16:45 [facility]) Comprehensive Metabolic Panel Collection DT: ThuAug 01, 2016 16:23, Sodium 136 mmol/L, Range (136-145), Potassium 4.3 mmol/L, Range (3.5-5.1), Chloride 103 mmol/L, Range (98-107), *Carbon Dioxide 21 - L mmol/L, Range (23-31), Anion Gap 16 mmol/L, Range (10-20), BUN (Urea Nitrogen) 20 mg/dL, Range (9.8-20.1), Creatinine 0.95 mg/dL, Range (0.6-1.1), Estimated GFR-MDRD 58 , Reference Range for Estimated GFR: Greater than 90, mL/min/1.73 m2 NOTE: The MDRD equation has not been validated for use, with the elderly (over 70 years of age), women, patients with, serious comorbid condition or persons with extremes of body size, muscle, mass, or nutritional status. , *Glucose 153 - H mg/dL, Range (80-115), Calcium 9.9 mg/dL, Range (7.8-10.44), Bilirubin, Total 0.2 mg/dL, Range (0.2-1.2), &a-1R&a+25V*p+0X*z1854B*c202B*c15G*c2P*p-0X&a-25V&a+1R Name: Clara Esposito : 1945 F71 MedRec: [id number] AcctNum: [id number] Prepared: ThuAug 01, 2016 18:31 by Interface Page 12 of 13 pMD [facility] EM[facility]GENCY RECORD Protein, Total 6.5 g/dL, Range (5.8-8.1), NOTE: Plasma values are generally 0.3 to 0.5 g/dL higher than serum values, due to the presence of fibrinogen. , Albumin 3.4 g/dL, Range (3.4-4.8), Globulin 3.1 g/dL, Range (2.4-3.5), *Alb/Glob Ratio 1.1 - L g/dL, Range (1.2-2.2), Alkaline Phosphatase 101 U/L, Range (40-150), AST (SGOT) 11 U/L, Range (5-34), ALT (SGPT) 27 U/L, Range (0-55). (16:45 JPIP) Cardiac Profile w/CKMB & TropI Collection DT: ThuAug 01, 2016 16:23, CKMB 0.3 ng/mL, Range (0-6.6), Troponin I 0.010 ng/mL, Range (< 0.028), Reference Range , 0.00 - 0.028 ng/mL Negative 0.029 - 0.29 ng/mL , Indeterminate Greater or Equal to 0.3 ng/mL Strongly suggests [place] , . (16:51 JPIP) B type Natriuretic Peptide Collection DT: ThuAug 01, 2016 16:23, B type Natriuretic Peptide 42.4 pg/mL, Range (0-100). (17:06 JPIP) Urine Microscopic Collection DT: ThuAug 01, 2016 17:21, RBC/HPF 0-3 HPF, Range (0-3), *WBC/HPF 21-50 - H HPF, Range (0-3), Squamous Epithelial 0-3 HPF, Range (0-3), *Bacteria/HPF 1+ - H HPF, Range (None Seen). (17:25 JPIP) Urinalysis w/ Rflx Microscopic Collection DT: ThuAug 01, 2016 17:21, Color Yellow , Range (Yellow), Clarity Slightly Cloudy , Range (Clear), Specific [place], Urine 1.015 , Range (1.005-1.030), pH, Urine 5.5 , Range (5.0-9.0), *Leukocyte Moderate - H , Range (Negative), *Nitrite Positive - H , Range (Negative), *Protein, Urine (Dipstick) 100 - H mg/dL, Range (Neg-Trace), Glucose, Urine (Dipstick) Negative mg/dL, Range (Negative), Ketone, Urine Negative mg/dL, Range (Negative), Urobilinogen 0.2 mg/dL, Range (0.2-1.0), Bilirubin Negative , Range (Negative), *Blood, Urine Trace - H , Range (Negative). (17:25 JP) Becker: AHOO=LEYDI Miller, October JPIP=DO Springer Joseph JSMI=SETH Varma, Jamee &a-1R&a+25V*p+0X*l4619X*c202B*c15G*c2P*p-0X&a-25V&a+1R Name: Clara Esposito : 1945 F71 MedRec: [id number] AcctNum: [id number] Prepared: ThuAug 01, 2016 18:31 by Interface Page 13 of 13 pMD MTDD
[2016-08-01 19:39] VITALS: BMI 22.8
[2016-08-01] MEDS ORDERED: Ondansetron HCl/PF 4 MG/2 ML Vial SLOW IVP PRN (22:31)
[2016-08-01] MEDS ORDERED: Ondansetron ODT 4 MG TAB PO PRN (22:31)
[2016-08-01] MEDS ORDERED: Acetaminophen 325 MG TAB PO PRN (22:31)
[2016-08-01] MEDS ORDERED: HYDROcodone/Acetaminophen 5/325 mg Tablet PO PRN ×2 (22:33)
--- NOTE | 2016-08-01 22:42 | RAD ---
PORTABLE CHEST 08/01/16 An AP portable film at 1605 is compared with a 01/23/16 study. The heart size is comparable. The gricel are a little more prominent, particularly on the right, but I believe this is due to rotation of th e patient. While the interstitial markings are slightly more prominent, I am not convinced that ther e is true failure as of yet. A serial followup film would be helpful. There are no effusions. A few linear streaks in the left base are probably scarring or atelectasis. IMPRESSION: Very minimal interstitial prominence. Followup will be needed. POS: HOME
[2016-08-02] MEDS ORDERED: Sodium Chloride 0.9% 1,000 ML IV SCH (01:30)
[2016-08-02] MEDS: Dextrose 5 %-0.45 % NaCl 1,000 ML IV SCH ×2 (01:52→09:58)
[2016-08-02] MEDS ORDERED: FLU VACC TS2016-17(65YR +) 0.5 ML SYRINGE IM ONE (09:00)
[2016-08-02] MEDS ORDERED: ACETAMINOPHEN 650 MG PO PRN (12:23)
[2016-08-02] MEDS ORDERED: Milk Of Magnesia 30 ML UDCUP PO PRN (12:23)
[2016-08-02] MEDS ORDERED: Bisacodyl 10 MG SUPP PR PRN (12:23)
[2016-08-02] MEDS ORDERED: Guaifenesin DM 100-10/5 ML UDCUP PO PRN (12:23)
[2016-08-02] MEDS ORDERED: Dextrose 50% Abboject 50 ML SYRINGE SLOW IVP PRN (12:29)
[2016-08-02] MEDS ORDERED: Dextrose 5% in Water 1,000 ML IV PRN (12:29)
[2016-08-02] MEDS ORDERED: HumaLOG 300 UNITS/3 ML VIAL SC PRN (12:29)
[2016-08-02] MEDS ORDERED: ALPRAZolam 0.5 MG TAB PO PRN (12:37)
[2016-08-02] MEDS ORDERED: Mag-Al Plus 1200 MG/1200 MG/120 MG/30 ML UDCUP PO PRN (12:38)
[2016-08-02] MEDS ORDERED: Loratadine 10 MG TAB PO PRN (12:45)
[2016-08-02] MEDS ORDERED: Artificial Tear Sol 15 ML BOT EA EYE PRN (13:04)
[2016-08-02 13:13] LABS: #Basophils 0.1 thou/uL (0.0-0.2); #Eosinphils 0.1 thou/uL (0.0-0.7); #Lymphocytes 0.8 thou/uL (1.20-3.40); #Monocytes 1.1 thou/uL (0.11-0.59); #Neutrophils 5.9 thou/uL (1.40-6.50); %Basophils 0.9 % (0.0-1.0); %Monocytes 14.2 % (0.0-10.0); Hematocrit 32.6 % (36.0-47.0); Mean Platelet Volume 8.2 fL (7.4-10.4); Red Blood Cell (RBC) Count 3.53 mill/uL (4.20-5.40); White Blood Cell (WBC) Count 8.1 thou/uL (4.8-10.8)
[2016-08-02] MEDS: Sodium Chloride 0.9% 1,000 ML IV SCH ×2 (13:15→23:42)
[2016-08-02 13:25] LABS: Anion Gap 12 mmol/L (10-20); BUN (Urea Nitrogen) 13 mg/dL (9.8-20.1); Calc. Creatinine Clearance 68 mL/min (70-130); Carbon Dioxide 22 mmol/L (23-31); Chloride 107 mmol/L (98-107); Estimated GFR-MDRD 78
[2016-08-02] MEDS: Ipratropium Bromide 2.5 ml Neb NEB SCH ×2 (13:31→18:39)
[2016-08-02] MEDS: Acetaminophen/Codeine 30-300mg Tablet PO PRN (14:01)
[2016-08-02] MEDS: cefTRIAXone\\ROCEPHIN 1 GM in Sodium Chloride 0.9% 100 ML IVPB SCH (17:07)
[2016-08-02] MEDS ORDERED: TROSPIUM 20 MG TABLET PO SCH (21:00)
[2016-08-02] MEDS: Gabapentin 300 MG CAP PO SCH (21:15)
[2016-08-02] MEDS: Nortriptyline HCl 25 MG CAP PO SCH (21:15)
[2016-08-02] MEDS: Temazepam 15 MG CAP PO SCH (21:15)
[2016-08-02] MEDS: Atorvastatin Calcium 10 MG TAB PO SCH (21:16)
[2016-08-02] MEDS: Ferrous Gluconate 324 MG TAB PO SCH (21:17)
[2016-08-02] MEDS: risperiDONE 0.5 MG TAB PO SCH (21:17)
[2016-08-02] MEDS: rOPINIRole HCl 0.25 MG TAB PO SCH (21:18)
--- NOTE | 2016-08-02 23:22 | HP ---
CHIEF COMPLAINT: Weakness. HISTORY OF PRESENT ILLNESS: Ms. Esposito is a 71-year-old female resident of [facility] for approximately 2 years, who presented to the Emergency Department yesterday with complaint of worsening weakness. The patient states her symptoms started approximately 2 weeks ago and have progressively worsened, specifically worse the day prior to admission. At that point, the patient felt so weak that she could not move her lower extremities. The patient was evaluated in the ER yesterday, noted to have low-grade fever, slight hypoxia, urinalysis suspicious for infection and elevated lactic acid level. Therefore, the patient has been admitted for IV antibiotics, IV fluid resuscitation, and clinical observation. The patient feels that her weakness is slightly improved from admission. The patient denies any new symptoms. She has not had any fevers, nausea, vomiting, diarrhea, or cough. Any changes in her mental status have resolved. PAST MEDICAL HISTORY: 1. Dry eye syndrome. 2. Osteoarthritis. 3. Poor coordination. 4. Diplopia. 5. Chronic constipation. 6. Insomnia. 7. Bipolar disorder. 8. History of falls. 9. History of artificial hip joint. 10. Cataracts. 11. Type 2 diabetes. 12. Major depression. 13. Anxiety. 14. Hyperlipidemia. 15. Obstructive sleep apnea, noncompliant with CPAP therapy. 16. Iron deficiency anemia that has required transfusion in the past, currently on iron supplementation. 17. Carotid artery stenosis. 18. Chronic pain. 19. Restless leg syndrome. 20. Vitamin D deficiency. 21. Peripheral vascular disease. 22. Hypertension. 23. Gastroesophageal reflux disease. 24. Chronic obstructive pulmonary disease. 25. Allergic rhinitis. 26. Onychomycosis. PAST SURGICAL HISTORY: Bilateral hip replacement, left knee replacement, cholecystectomy, hysterectomy. SOCIAL HISTORY: No current alcohol, tobacco or illicit drug use. The patient is a resident of [facility] x2 years. Former smoker. FAMILY HISTORY: Noncontributory. ALLERGIES: ZOLPIDEM, which caused hallucinations. CURRENT MEDICATIONS: 1. Plavix 75 mg 1 p.o. q. day. 2. Protonix 40 mg one p.o. q. day. 3. Requip 0.25 mg 3 tablets by mouth at bedtime. 4. Restoril 15 mg 1 p.o. at bedtime. 5. Risperdal 0.5 mg 1 p.o. at bedtime. 6. Spiriva 18 mcg 2 puffs once a day. 7. Systane 2 drops in both eyes every 8 hours as needed for irritated eyes. 8. Trospium 20 mg 3 tablets q. day. 9. Tussin DM 100-10/5 10 mL by mouth every 4 hours as needed for cough. 10. Tylenol Arthritis Pain extended release 650 mg q.4 hours p.r.n. pain. 11. Tylenol with Codeine 300/30 two p.o. q.12 hours p.r.n. pain. 12. Vitamin D3 2000 IU q. day. 13. Alprazolam 0.25 mg q.8 hours p.r.n. anxiety. 14. Shiloh 180 mg p.o. q. day p.r.n. allergies. 15. Aspirin 325 mg p.o. daily. 16. Cymbalta 60 mg p.o. b.i.d. 17. Diltiazem HCL 120 mg p.o. q. day. 18. Dulcolax suppository 1 SC q.24 hours p.r.n. constipation. 19. Ferrous gluconate 324 mg p.o. b.i.d. 20. Gabapentin 300 mg 1 p.o. b.i.d. 21. Lipitor 10 mg 1 p.o. at bedtime. 22. Maalox 200-200-20 mg/5, 30 mL p.o. as needed for indigestion. 23. Metformin 500 mg p.o. b.i.d. 24. Milk of magnesia 400/5 30 mL p.o. q.24 hours p.r.n. constipation. 25. MiraLax 17 grams by mouth once a day. 26. Pamelor 25 mg p.o. at bedtime. 27. Penlac solutions apply to fingernail topically daily. REVIEW OF SYSTEMS: Constitutional: Denies chills. Positive fatigue, low-grade fever of 99, positive malaise. Eyes: Denies vision changes. ENT: The patient denies sore throat, rhinorrhea and nasal congestion. Cardiovascular: Denies chest pain, dyspnea on exertion, palpitations, orthopnea , PND. Respiratory: The patient denies cough, positive dyspnea, denies wheezing, history of sleep apnea, noncompliant due to patient preference. Gastrointestinal: Denies nausea, vomiting, diarrhea, history of chronic constipation. Genitourinary: Denies dysuria, gross hematuria. Positive bladder spasms and incontinence. Musculoskeletal: Denies arthralgias above her baseline, myalgias. The patient with a history of chronic pain related to osteoarthritis. She is nonambulatory and propel herself with scooter at this facility. Skin: The patient denies rash or skin changes or skin lesions. Neurologic: The patient complains of dizziness, denies headache, numbness, tingling. Psychiatric: The patient with a history of bipolar disorder/depression/ anxiety. Denies any symptoms above her usual baseline. History of insomnia. Lymph: The patient denies any lymphadenopathy or swelling. Hematologic: The patient with history of iron deficiency anemia on supplementation. PHYSICAL EXAMINATION: VITAL SIGNS: ER admitting vital signs; blood pressure 134/63, pulse 95, respirations 16, temperature 99.5 oral, pain 0/10, O2 sat 90% on room air. At my exam, temperature 98.5, heart rate 98, respirations 18, O2 sat 97% on 2 liters, and blood pressure 150/67. GENERAL: Well-developed, thin female, alert and oriented x3 in no acute distress. Drowsy appearing, but remains awake for conversation. HEENT: Normocephalic, atraumatic. Pupils equal, round, and reactive to light and accommodation. Extraocular muscles intact. Nares are patent bilaterally without discharge. Tongue protrudes in the midline. NECK: Supple, without lymphadenopathy, thyromegaly, JVD or bruit. HEART: Slightly tachycardic. Regular rhythm, 1/6 systolic ejection murmur best heard at left lower sternal border without radiation. LUNGS: Good air entry bilaterally with fine basilar crackles on the left. No increased work of breathing. No wheezing. ABDOMEN: Positive bowel sounds in all four quadrants, soft, nontender, nondistended, no masses, guarding, or rebound tenderness. EXTREMITIES: No cyanosis, clubbing or edema. NEUROLOGICAL: Cranial nerves II-XII grossly intact. No focal deficits. LABORATORY DATA: White count 11.3, hemoglobin 11.3, hematocrit 35.9, MCV 93.6, MCHC 31.4, platelets 351, 80% neutrophils and 7% lymphocytes. PT 13, INR 1.0, PTT 27.1. Sodium 136, potassium 4.3, chloride 103, carbon dioxide 21, BUN 20, creatinine 0.95, glucose 153, lactic acid 2.5 and subsequently 2.0, calcium 9.9. AST 11, ALT 27. CK-MB 0.3, troponin I 0.010, BNP 42.4. Albumin 3.4. Urinalysis significant for 100 protein, trace blood, positive nitrite, moderate leukocyte esterase, 0-3 RBC, 21-50 WBC, urine squamous epithelial cells 0-3, 1+ bacteria. CBC, BMP, and repeat lactic acid level are pending for today. Chest x-ray showed very minimal interstitial prominence. Follow up advised. EKG is normal sinus rhythm with nonspecific ST abnormality, heart rate 94 beats per minute. ASSESSMENT AND PLAN: 1. Urinary tract infection, rule out urosepsis. The patient has been admitted and placed on Rocephin 1 gram IV q.24 hours. We will await urine culture and blood culture x2. 2. Altered mental status. This is already improved with IV fluids and IV antibiotics. We will continue to monitor. We will repeat her lactic acid level this morning. I have held her trospium due to concerns over dosing. She is on multiple agents that individually not mention together could contribute to altered mental status. We will follow clinically. 3. Hypoxia. The patient does have a history of uncorrected obstructive sleep apnea and chronic obstructive pulmonary disease. However, she does not appear to have current exacerbation. Due to interstitial prominence on her chest x-ray , we will repeat her chest x-ray in the a.m. She is without cough. Therefore, we will just continue Rocephin at this time. 4. Type 2 diabetes. We will hold the patient's metformin pending any possible contrast studies needed during her hospitalization. We will place on Accu- Cheks before meals and at bedtime with a mild lispro and bedtime correction algorithm. We will place the patient on a consistent carbohydrate diet. 5. Bipolar/depression/anxiety. The patient will be continued on her current regimen. 6. Urinary incontinence. I am going to hold the patient's trospium at this time. It appears that she has been getting immediate release tablets, three once daily. We will need to clarify going forward if this medication is to be continued as to whether we can obtain the extended release version at which 60 mg will be appropriate dosing. However, if immediate release is recommended going forward, we would consider changing the dose to 20 mg p.o. b.i.d. per current dosing recommendations. 7. Chronic obstructive pulmonary disease. The patient will be continued on her Spiriva and supportive O2 p.r.n. to keep her sats 92% or higher and also to be left in place at bedtime in the context of uncorrected LUZ ELENA. 8. Peripheral vascular disease. The patient has been continued on her anticoagulants. 9. Hyperlipidemia. The patient will be continued on her statin therapy. 10. Restless leg syndrome. The patient will be continued on her ropinirole. 11. Gastroesophageal reflux disease. The patient will be continued on Protonix. 12. Chronic constipation. Her bowel regimen will be continued going forward. 13. Hyperchromic anemia. The patient with history of iron deficiency. We will continue her iron supplementation. Repeat CBC and follow. 14. Chronic pain. The patient will be continued on her pain regimen while hospitalized. 15. Hypertension. The patient will be continued on her antihypertensive regimen while hospitalized. 16. Prophylaxis. SCDs will be placed. Her PPI will be continued as above. MTDD
[2016-08-03] MEDS: Ipratropium Bromide 2.5 ml Neb NEB SCH ×4 (02:13→19:55)
[2016-08-03 06:19] LABS: #Basophils 0.1 thou/uL (0.0-0.2); #Eosinphils 0.2 thou/uL (0.0-0.7); #Lymphocytes 0.8 thou/uL (1.20-3.40); #Neutrophils 5.6 thou/uL (1.40-6.50); %Basophils 0.8 % (0.0-1.0); %Eosinophils 2.4 % (0.0-10.0); %Monocytes 13.1 % (0.0-10.0); Hematocrit 29.9 % (36.0-47.0); Mean Platelet Volume 7.5 fL (7.4-10.4); Red Blood Cell (RBC) Count 3.23 mill/uL (4.20-5.40); White Blood Cell (WBC) Count 7.7 thou/uL (4.8-10.8)
[2016-08-03 06:29] LABS: Anion Gap 9 mmol/L (10-20); BUN (Urea Nitrogen) 13 mg/dL (9.8-20.1); Calc. Creatinine Clearance 72 mL/min (70-130); Calcium 8.5 mg/dL (7.8-10.44); Carbon Dioxide 22 mmol/L (23-31); Chloride 111 mmol/L (98-107); Estimated GFR-MDRD 83
[2016-08-03] MEDS ORDERED: CICLOPIROX TOP SCH (09:00)
[2016-08-03] MEDS: Aspirin 325 mg Enteric Coated Tablet PO SCH (09:21)
[2016-08-03] MEDS: Polyethylene Glycol 3350 17 GM Packet PO SCH (09:21)
[2016-08-03] MEDS: Gabapentin 300 MG CAP PO SCH ×2 (09:22→20:49)
[2016-08-03] MEDS: Ferrous Gluconate 324 MG TAB PO SCH ×2 (09:23→20:53)
[2016-08-03] MEDS: Clopidogrel Bisulfate 75 MG TAB PO SCH (09:24)
[2016-08-03] MEDS: Sodium Chloride 0.9% 1,000 ML IV SCH (10:18)
--- NOTE | 2016-08-03 11:53 | RAD ---
PORTABLE CHEST: Date: 08/03/16 An AP portable film at 0548 hours is compared with the 08/01/16 study. Before, it was remarked that there was some slight prominence of the interstitial markings. This see ms a little more so today, but there is more focal increase in markings in the left base, in the lef t lower lobe. An infiltrate here is presumed. There are no large effusions. The heart size remains n ormal. IMPRESSION: 1. Further slight increase in interstitial markings. 2. More focal increase in markings in the left base. A minimal pneumonia may be present here. CODE T. POS: HOME
[2016-08-03] MEDS: HumaLOG 300 UNITS/3 ML VIAL SC PRN (13:36)
[2016-08-03] MEDS ORDERED: Nystatin Powder 15 GM BOT TOP SCH (14:15)
[2016-08-03] MEDS: cefTRIAXone\\ROCEPHIN 1 GM in Sodium Chloride 0.9% 100 ML IVPB SCH (17:21)
[2016-08-03] MEDS: Atorvastatin Calcium 10 MG TAB PO SCH (20:48)
[2016-08-03] MEDS: Nortriptyline HCl 25 MG CAP PO SCH (20:48)
[2016-08-03] MEDS: Temazepam 15 MG CAP PO SCH (20:49)
[2016-08-03] MEDS: Acetaminophen/Codeine 30-300mg Tablet PO PRN (20:49)
[2016-08-03] MEDS: risperiDONE 0.5 MG TAB PO SCH (20:49)
[2016-08-03] MEDS: rOPINIRole HCl 0.25 MG TAB PO SCH (20:53)
[2016-08-03] MEDS: Nystatin Powder 15 GM BOT TOP SCH (20:53)
[2016-08-04] MEDS: Ipratropium Bromide 2.5 ml Neb NEB SCH ×4 (01:13→19:12)
[2016-08-04 06:15] LABS: #Basophils 0.1 thou/uL (0.0-0.2); #Eosinphils 0.2 thou/uL (0.0-0.7); #Monocytes 0.8 thou/uL (0.11-0.59); #Neutrophils 5.9 thou/uL (1.40-6.50); %Basophils 1.4 % (0.0-1.0); %Eosinophils 2.2 % (0.0-10.0); Hematocrit 32.1 % (36.0-47.0); Mean Platelet Volume 7.3 fL (7.4-10.4); Red Blood Cell (RBC) Count 3.48 mill/uL (4.20-5.40)
[2016-08-04 06:25] LABS: Anion Gap 12 mmol/L (10-20); BUN (Urea Nitrogen) 12 mg/dL (9.8-20.1); Calc. Creatinine Clearance 71 mL/min (70-130); Calcium 9.3 mg/dL (7.8-10.44); Carbon Dioxide 22 mmol/L (23-31); Chloride 110 mmol/L (98-107); Estimated GFR-MDRD 82
--- NOTE | 2016-08-04 06:58 | RAD ---
PORTABLE CHEST: Date: 08/04/16 An AP portable film at 0611 hours is compared with the 08/03/16 study. FINDINGS: There is still some mild congestive change in the vessel, though is probably improved slightly. The increased streaking in the left base has improved as well. The right lung is relatively clear IMPRESSION: Overall, slight improvement since yesterday. POS: HOME
[2016-08-04] MEDS: Nystatin Powder 15 GM BOT TOP SCH ×2 (09:34→21:04)
[2016-08-04] MEDS: Polyethylene Glycol 3350 17 GM Packet PO SCH (09:34)
[2016-08-04] MEDS: Floranex Packet PO SCH (09:35)
[2016-08-04] MEDS: Clopidogrel Bisulfate 75 MG TAB PO SCH (09:35)
[2016-08-04] MEDS: Aspirin 325 mg Enteric Coated Tablet PO SCH (09:36)
[2016-08-04] MEDS: Ferrous Gluconate 324 MG TAB PO SCH ×2 (09:36→21:03)
[2016-08-04] MEDS: Gabapentin 300 MG CAP PO SCH ×2 (09:37→21:05)
[2016-08-04] MEDS: Acetaminophen/Codeine 30-300mg Tablet PO PRN (14:54)
[2016-08-04] MEDS: cefTRIAXone\\ROCEPHIN 1 GM in Sodium Chloride 0.9% 100 ML IVPB SCH (17:17)
[2016-08-04] MEDS: HumaLOG 300 UNITS/3 ML VIAL SC PRN (17:27)
[2016-08-04] MEDS: Temazepam 15 MG CAP PO SCH (21:04)
[2016-08-04] MEDS: Atorvastatin Calcium 10 MG TAB PO SCH (21:05)
[2016-08-04] MEDS: rOPINIRole HCl 0.25 MG TAB PO SCH (21:05)
[2016-08-04] MEDS: risperiDONE 0.5 MG TAB PO SCH (21:05)
[2016-08-04] MEDS: Nortriptyline HCl 25 MG CAP PO SCH (21:05)
[2016-08-05] MEDS: Ipratropium Bromide 2.5 ml Neb NEB SCH ×4 (01:20→18:38)
[2016-08-05] MEDS ORDERED: TROSPIUM 20 MG TABLET PO SCH (09:00)
[2016-08-05] MEDS: Floranex Packet PO SCH (09:16)
[2016-08-05] MEDS: Polyethylene Glycol 3350 17 GM Packet PO SCH (09:16)
[2016-08-05] MEDS: Ferrous Gluconate 324 MG TAB PO SCH (09:16)
[2016-08-05] MEDS: Nystatin Powder 15 GM BOT TOP SCH (09:16)
[2016-08-05] MEDS: Gabapentin 300 MG CAP PO SCH (09:18)
[2016-08-05] MEDS: Clopidogrel Bisulfate 75 MG TAB PO SCH (09:18)
[2016-08-05] MEDS: Aspirin 325 mg Enteric Coated Tablet PO SCH (09:18)
[2016-08-05] MEDS: Acetaminophen/Codeine 30-300mg Tablet PO PRN (15:32)
[2016-08-05 18:45] VITALS: BP 140/64; TEMP 97.6
--- NOTE | 2016-08-06 04:15 | DIS ---
DATE OF ADMISSION: 08/01/2016 DATE OF DISCHARGE: 08/05/2016 ADMISSION DIAGNOSES: 1. Urinary tract infection, rule out sepsis. 2. Altered mental status. 3. Type 2 diabetes. DISCHARGE DIAGNOSES: 1. Urinary tract infection with Enterobacter, Escherichia coli and gram negative jayson #3 pending. 2. Left lower lobe pneumonia, community acquired. 3. Type 2 diabetes. 4. Altered mental status, resolved. 5. Physical deconditioning. 6. Urinary incontinence. ATTENDING PHYSICIAN: Dr. Lucia Sales. PROCEDURES: 1. White count on the date of admission 11.3, subsequently on the day prior to transfer down to 8.0 . 2. Hemoglobin of 11.3 with a history of iron deficiency anemia and past transfusion, stable 10.2 he moglobin on 08/04/2016. 3. Coag studies on the date of admission within normal limits. 4. Chemistry profile from the date of admission remarkable for carbon dioxide of 21, glucose 153, o therwise normal. 5. Cardiac enzymes on the date of admission were negative. 6. Lactic acid on the date of admission elevated at 2.5, subsequently down to 0.6 on the date after admission. 7. Urinalysis from the date of admission significant for 100 protein, trace blood, positive nitrite , moderate leukocyte esterase, 0-3 rbc, 21-50 wbc, 1+ bacteria, squamous epithelial cells 0-[address] [facility] catheterization. 8. Urine culture from the date of admission grew out Enterobacter aerogenes greater than 100,000 CF U per mL resistant to cephalosporins with sensitive to fluoroquinolones including Levaquin, also gre w out E. coli sensitive to cephalosporins and Levaquin. A third gram negative jayson at the time of tr alfredfer has ID and sensitivity still pending and will be followed up during her swing bed stay. 9. Blood culture x2 from the date of admission negative at 48 hours. 10. Chest x-ray from the date of admission shows very minimal interstitial prominence and followup advised. Repeat chest x-ray 08/03/2016 shows further slight increase in interstitial markings, foca l increased markings in the left base and minimal pneumonia may be present here. 11. Chest x-ray from 08/04/2016 shows overall improvement. HISTORY AND PHYSICAL EXAMINATION: Please see dictated report from the date of admission. HOSPITAL COURSE: Ms. Esposito is a 71-year-old resident of [facility] who experience approximately 2 weeks of increasing weakness, worsening the day prior to ER presentation. The raheel ent is a resident at [facility] for approximately 2 years and was recomm ended ER evaluation on 08/04/2016 due to profound weakness and slight alteration of mental status. Her initial admission was suspicious for urinary tract infection, had elevated lactic acid level and thus a rule out sepsis protocol was followed. The patient's lactic acid level was repeated and sub sequently improved. Her leukocytosis improved with treatment. She was empirically treated with Collins ephin and after possible pneumonia was seen on chest x-ray. She was added additional coverage of Le vaquin. Her alteration of mental status was improved with antibiotic treatment. She was aggressive ly hydrated in the context of possible sepsis. Once she was able to take p.o. well on her own, this was discontinued. Subsequently, the Rocephin was discontinued and the Levaquin continued to cover both the pneumonia a nd the two strains of bacteria in the urine. The third strain is pending and this will be followed up on as she rehabilitated in her swing bed unit. Patient with history of type 2 diabetes. Her metformin was initially held, pending further studies that might need contrast. She was treated with a mild and bedtime Humalog sliding scale protocol. Her metformin was restarted on the day prior to her transfer. Her Accu-Cheks have been stable throu ghout her admission. The patient with a history of urinary incontinence and was noted to be on Trospium 60 mg immediate r elease once daily. This could be contributing to urinary retention and frequent urinary tract infec tions. I changed this, holding it initially, but with persistent urinary incontinence, decided to r estart this at 20 mg immediate release b.i.d. Patient with alteration of mental status and multiple drug interactions per her medication list. I am going to try to wean her down on some of these over time. She has been taking Pamelor for headac he prophylaxis. We will decrease the dose of that at this time. Physical deconditioning was noted during her hospital stay and thus after discussion with the family , the decision was made for the patient to be transferred to our swing bed unit for PT and OT. DISPOSITION: Transfer to swing bed unit at [facility]. FOLLOWUP: Will be with myself within a week. MEDICATIONS: 1. Spiriva 2 puffs daily. 2. Penlac 1 application topically daily. 3. Systane Balance 2 drops to each eye q.8 hours p.r.n. 4. Xanax 0.25 mg p.o. q.8 hours p.r.n. anxiety. 5. Ferrous gluconate 324 mg p.o. b.i.d. 6. Milk of magnesia 30 mL p.o. q.24 hours p.r.n. 7. Tylenol with codeine 2 tablets p.o. q.12 hours p.r.n. 8. Maalox 30 mL p.o. at bedtime p.r.n. 9. Dulcolax 10 mg ND daily p.r.n. 10. Lipitor 10 mg p.o. at bedtime. 11. Aspirin 325 mg p.o. daily. 12. Duloxetine 60 mg p.o. b.i.d. 13. Plavix 75 mg p.o. daily. 14. Vitamin D3 of 2000 units p.o. daily. 15. Gabapentin 300 mg p.o. b.i.d. 16. Cardizem CD 120 mg p.o. daily. 17. Shiloh 180 mg p.o. daily p.r.n. 18. Protonix 40 mg p.o. daily. 19. Restoril 15 mg one tablet p.o. at bedtime. 20. MiraLax 17 g p.o. daily. 21. Risperdal 0.5 mg p.o. at bedtime. 22. Requip 0.75 mg p.o. q.p.m. 23. Metformin 500 mg p.o. b.i.d. 24. Trospium chloride 20 mg p.o. b.i.d. 25. Tussin DM cough syrup 10 mL p.o. q.4 hours p.r.n. cough. 26. Phenergan 25 mg p.o. q.6 hours p.r.n. nausea. 27. Nystatin powder apply to affected area topically b.i.d. 28. Pamelor 12.5 mg p.o. at bedtime. 29. Levaquin 500 mg p.o. daily. 30. Humalog sliding scale mild and bedtime algorithm. 31. Glucagon 1 mg IM p.r.n. for hypoglycemia. 32. D50 twenty five grams slow IV p.r.n. hypoglycemia. 33. Floranex 1 g p.o. daily. 34. Tylenol 650 mg p.o. q.4 hours p.r.n.
== END 2016-08-05 19:42 | DRG 689 ==
LOC: BURERS 15:43 → BURMED 18:04
PROVIDERS: ADMIT Family Medicine; ATTEND Family Medicine
DX: N39.0 Urinary tract infection, site not specified (principal); J18.9 Pneumonia, unspecified organism; B96.89 Other specified bacterial agents as the cause of diseases classified elsewhere; B96.20 Unspecified Escherichia coli [E. coli] as the cause of diseases classified elsewhere; E11.9 Type 2 diabetes mellitus without complications; F32.9 Major depressive disorder, single episode, unspecified; R41.82 Altered mental status, unspecified; R32 Unspecified urinary incontinence; G47.30 Sleep apnea, unspecified; I73.9 Peripheral vascular disease, unspecified; M81.0 Age-related osteoporosis without current pathological fracture; E78.5 Hyperlipidemia, unspecified; M19.90 Unspecified osteoarthritis, unspecified site; F31.9 Bipolar disorder, unspecified; F41.9 Anxiety disorder, unspecified; K21.9 Gastro-esophageal reflux disease without esophagitis; Z87.891 Personal history of nicotine dependence; D50.9 Iron deficiency anemia, unspecified
CPT/HCPCS: 36415; 36416; 71010; 80048; 80053; 81003; 81015; 82553; 83605; 83880; 84484; 85025; 85610; 85730; 87040; 87077; 87086; 87186; 93005; 94640; 94760; 96365; A4216; A4353; G8978-GP-CK; G8979-GP-CI; J0696; J1956; J7050; J7644

== ENCOUNTER 2016-08-05 19:47 | Inpatient (IN) | payer MEDICARE, BC, MEDICAID ==
[2016-08-05] MEDS ORDERED: Bisacodyl 10 MG SUPP PR PRN (21:58)
[2016-08-05] MEDS ORDERED: Mag-Al Plus 1200 MG/1200 MG/120 MG/30 ML UDCUP PO PRN (21:58)
[2016-08-05] MEDS ORDERED: Milk Of Magnesia 30 ML UDCUP PO PRN (21:58)
[2016-08-05] MEDS ORDERED: Guaifenesin DM 100-10/5 ML UDCUP PO PRN (21:58)
[2016-08-05] MEDS ORDERED: ALPRAZolam 0.5 MG TAB PO PRN (21:58)
[2016-08-05] MEDS ORDERED: Polyethylene Glycol OPTH DROP 15 ML BOT EA EYE PRN (21:58)
[2016-08-05] MEDS ORDERED: Dextrose 50% Abboject 50 ML SYRINGE SLOW IVP PRN (21:58)
[2016-08-05] MEDS ORDERED: HumaLOG 300 UNITS/3 ML VIAL SC PRN ×4 (21:58→22:41)
[2016-08-05] MEDS ORDERED: Loratadine 10 MG TAB PO PRN (22:30)
[2016-08-06] MEDS: Ipratropium Bromide 2.5 ml Neb NEB SCH ×4 (01:00→18:12)
[2016-08-06] MEDS ORDERED: FLU VACC TS2016-17(65YR +) 0.5 ML SYRINGE IM ONE (09:00)
[2016-08-06] MEDS ORDERED: CICLOPIROX TOP SCH (09:00)
[2016-08-06] MEDS: Polyethylene Glycol 3350 17 GM Packet PO SCH (10:07)
[2016-08-06] MEDS: Floranex Packet PO SCH (10:07)
[2016-08-06] MEDS: Ferrous Gluconate 324 MG TAB PO SCH ×2 (10:08→18:11)
[2016-08-06] MEDS: Clopidogrel Bisulfate 75 MG TAB PO SCH (10:08)
[2016-08-06] MEDS: Aspirin 325 mg Enteric Coated Tablet PO SCH (10:09)
[2016-08-06] MEDS: Gabapentin 300 MG CAP PO SCH ×2 (10:10→21:25)
[2016-08-06] MEDS: TROSPIUM 20 MG TABLET PO SCH ×2 (10:11→21:29)
[2016-08-06] MEDS: Nystatin Powder 15 GM BOT TOP SCH ×2 (10:12→21:49)
[2016-08-06] MEDS: Atorvastatin Calcium 10 MG TAB PO SCH (21:24)
[2016-08-06] MEDS: Temazepam 15 MG CAP PO SCH (21:25)
[2016-08-06] MEDS: rOPINIRole HCl 0.25 MG TAB PO SCH (21:25)
[2016-08-06] MEDS: risperiDONE 0.5 MG TAB PO SCH (21:26)
[2016-08-06] MEDS: Nortriptyline HCl 25 MG CAP PO SCH (21:44)
[2016-08-07] MEDS: Ipratropium Bromide 2.5 ml Neb NEB SCH ×5 (00:13→23:54)
[2016-08-07 03:14] VITALS: BMI 23.6
[2016-08-07] MEDS: TROSPIUM 20 MG TABLET PO SCH ×2 (09:06→21:08)
[2016-08-07] MEDS: Floranex Packet PO SCH (09:06)
[2016-08-07] MEDS: Clopidogrel Bisulfate 75 MG TAB PO SCH (09:06)
[2016-08-07] MEDS: Aspirin 325 mg Enteric Coated Tablet PO SCH (09:06)
[2016-08-07] MEDS: Ferrous Gluconate 324 MG TAB PO SCH ×2 (09:07→17:35)
[2016-08-07] MEDS: Acetaminophen/Codeine 30-300mg Tablet PO PRN ×2 (09:08→21:10)
[2016-08-07] MEDS: Gabapentin 300 MG CAP PO SCH ×2 (09:09→21:07)
[2016-08-07] MEDS: Polyethylene Glycol 3350 17 GM Packet PO SCH (09:10)
[2016-08-07] MEDS: Nystatin Powder 15 GM BOT TOP SCH ×2 (09:10→21:13)
[2016-08-07] MEDS: Atorvastatin Calcium 10 MG TAB PO SCH (21:06)
[2016-08-07] MEDS: rOPINIRole HCl 0.25 MG TAB PO SCH (21:08)
[2016-08-07] MEDS: Temazepam 15 MG CAP PO SCH (21:09)
[2016-08-07] MEDS: risperiDONE 0.5 MG TAB PO SCH (21:09)
[2016-08-07] MEDS: Nortriptyline HCl 25 MG CAP PO SCH (22:00)
[2016-08-08] MEDS: Ipratropium Bromide 2.5 ml Neb NEB SCH ×3 (05:01→17:40)
[2016-08-08] MEDS: Ferrous Gluconate 324 MG TAB PO SCH ×2 (08:50→17:37)
[2016-08-08] MEDS: Polyethylene Glycol 3350 17 GM Packet PO SCH (08:50)
[2016-08-08] MEDS: Floranex Packet PO SCH (08:50)
[2016-08-08] MEDS: TROSPIUM 20 MG TABLET PO SCH ×2 (08:50→20:57)
[2016-08-08] MEDS: Clopidogrel Bisulfate 75 MG TAB PO SCH (08:50)
[2016-08-08] MEDS: Aspirin 325 mg Enteric Coated Tablet PO SCH (08:52)
[2016-08-08] MEDS: Gabapentin 300 MG CAP PO SCH ×2 (08:52→20:57)
[2016-08-08] MEDS: Nystatin Powder 15 GM BOT TOP SCH ×2 (08:52→21:06)
[2016-08-08] MEDS: Acetaminophen/Codeine 30-300mg Tablet PO PRN ×2 (09:01→20:59)
[2016-08-08] MEDS: rOPINIRole HCl 0.25 MG TAB PO SCH (20:58)
[2016-08-08] MEDS: Atorvastatin Calcium 10 MG TAB PO SCH (20:59)
[2016-08-08] MEDS: risperiDONE 0.5 MG TAB PO SCH (20:59)
[2016-08-08] MEDS: Temazepam 15 MG CAP PO SCH (20:59)
[2016-08-08] MEDS: Nortriptyline HCl 25 MG CAP PO SCH (21:06)
[2016-08-09] MEDS: Ipratropium Bromide 2.5 ml Neb NEB SCH ×4 (00:14→17:17)
[2016-08-09] MEDS: Aspirin 325 mg Enteric Coated Tablet PO SCH (08:34)
[2016-08-09] MEDS: Polyethylene Glycol 3350 17 GM Packet PO SCH (08:34)
[2016-08-09] MEDS: Clopidogrel Bisulfate 75 MG TAB PO SCH (08:35)
[2016-08-09] MEDS: TROSPIUM 20 MG TABLET PO SCH ×2 (08:35→21:16)
[2016-08-09] MEDS: Nystatin Powder 15 GM BOT TOP SCH ×2 (08:36→21:17)
[2016-08-09] MEDS: Ferrous Gluconate 324 MG TAB PO SCH ×2 (08:36→17:17)
[2016-08-09] MEDS: Floranex Packet PO SCH (08:36)
[2016-08-09] MEDS: Gabapentin 300 MG CAP PO SCH ×2 (08:36→21:16)
[2016-08-09] MEDS: rOPINIRole HCl 0.25 MG TAB PO SCH (21:15)
[2016-08-09] MEDS: Temazepam 15 MG CAP PO SCH (21:15)
[2016-08-09] MEDS: Nortriptyline HCl 25 MG CAP PO SCH (21:16)
[2016-08-09] MEDS: risperiDONE 0.5 MG TAB PO SCH (21:16)
[2016-08-09] MEDS: Atorvastatin Calcium 10 MG TAB PO SCH (21:16)
[2016-08-09] MEDS: Acetaminophen/Codeine 30-300mg Tablet PO PRN (22:50)
[2016-08-10] MEDS: Ipratropium Bromide 2.5 ml Neb NEB SCH ×4 (00:24→17:36)
[2016-08-10] MEDS: Clopidogrel Bisulfate 75 MG TAB PO SCH (08:47)
[2016-08-10] MEDS: Aspirin 325 mg Enteric Coated Tablet PO SCH (08:47)
[2016-08-10] MEDS: Floranex Packet PO SCH (08:47)
[2016-08-10] MEDS: Polyethylene Glycol 3350 17 GM Packet PO SCH (08:47)
[2016-08-10] MEDS: Ferrous Gluconate 324 MG TAB PO SCH ×2 (08:47→17:35)
[2016-08-10] MEDS: TROSPIUM 20 MG TABLET PO SCH ×2 (08:47→20:30)
[2016-08-10] MEDS: Gabapentin 300 MG CAP PO SCH ×2 (08:48→20:29)
[2016-08-10] MEDS: Nystatin Powder 15 GM BOT TOP SCH (08:49)
[2016-08-10] MEDS: Acetaminophen/Codeine 30-300mg Tablet PO PRN (16:10)
[2016-08-10] MEDS: rOPINIRole HCl 0.25 MG TAB PO SCH (20:29)
[2016-08-10] MEDS: Nortriptyline HCl 25 MG CAP PO SCH (20:29)
[2016-08-10] MEDS: Temazepam 15 MG CAP PO SCH (20:30)
[2016-08-10] MEDS: risperiDONE 0.5 MG TAB PO SCH (20:30)
[2016-08-10] MEDS: Atorvastatin Calcium 10 MG TAB PO SCH (20:30)
[2016-08-11] MEDS: Ipratropium Bromide 2.5 ml Neb NEB SCH ×5 (00:27→23:58)
[2016-08-11] MEDS: Nystatin Powder 15 GM BOT TOP SCH ×3 (00:27→21:11)
[2016-08-11] MEDS: TROSPIUM 20 MG TABLET PO SCH ×2 (08:58→20:55)
[2016-08-11] MEDS: Gabapentin 300 MG CAP PO SCH ×2 (08:58→20:56)
[2016-08-11] MEDS: Aspirin 325 mg Enteric Coated Tablet PO SCH (08:58)
[2016-08-11] MEDS: Clopidogrel Bisulfate 75 MG TAB PO SCH (08:58)
[2016-08-11] MEDS: Floranex Packet PO SCH (09:07)
[2016-08-11] MEDS: Ferrous Gluconate 324 MG TAB PO SCH ×2 (09:07→17:39)
[2016-08-11] MEDS: Polyethylene Glycol 3350 17 GM Packet PO SCH (09:08)
[2016-08-11] MEDS: Acetaminophen 325 MG TAB PO PRN (12:42)
[2016-08-11] MEDS: Nortriptyline HCl 25 MG CAP PO SCH (20:53)
[2016-08-11] MEDS: risperiDONE 0.5 MG TAB PO SCH (20:55)
[2016-08-11] MEDS: rOPINIRole HCl 0.25 MG TAB PO SCH (20:55)
[2016-08-11] MEDS: Temazepam 15 MG CAP PO SCH (20:56)
[2016-08-11] MEDS: Atorvastatin Calcium 10 MG TAB PO SCH (20:56)
[2016-08-12] MEDS: Ipratropium Bromide 2.5 ml Neb NEB SCH ×4 (05:24→23:06)
[2016-08-12] MEDS: Polyethylene Glycol 3350 17 GM Packet PO SCH (09:35)
[2016-08-12] MEDS: Floranex Packet PO SCH (09:35)
[2016-08-12] MEDS: Ferrous Gluconate 324 MG TAB PO SCH ×2 (09:36→17:49)
[2016-08-12] MEDS: Clopidogrel Bisulfate 75 MG TAB PO SCH (09:36)
[2016-08-12] MEDS: Gabapentin 300 MG CAP PO SCH ×2 (09:36→20:23)
[2016-08-12] MEDS: TROSPIUM 20 MG TABLET PO SCH ×2 (09:36→20:19)
[2016-08-12] MEDS: Aspirin 325 mg Enteric Coated Tablet PO SCH (09:37)
[2016-08-12] MEDS: Nystatin Powder 15 GM BOT TOP SCH ×2 (09:37→22:16)
[2016-08-12] MEDS: Acetaminophen/Codeine 30-300mg Tablet PO PRN ×2 (10:48→22:13)
[2016-08-12] MEDS: rOPINIRole HCl 0.25 MG TAB PO SCH (20:20)
[2016-08-12] MEDS: Temazepam 15 MG CAP PO SCH (20:22)
[2016-08-12] MEDS: risperiDONE 0.5 MG TAB PO SCH (20:23)
[2016-08-12] MEDS: Nortriptyline HCl 25 MG CAP PO SCH (20:23)
[2016-08-12] MEDS: Atorvastatin Calcium 10 MG TAB PO SCH (20:23)
[2016-08-13] MEDS: Ipratropium Bromide 2.5 ml Neb NEB SCH ×3 (05:51→17:27)
[2016-08-13] MEDS: Acetaminophen 325 MG TAB PO PRN (08:37)
[2016-08-13] MEDS: Polyethylene Glycol 3350 17 GM Packet PO SCH (08:38)
[2016-08-13] MEDS: Floranex Packet PO SCH (08:39)
[2016-08-13] MEDS: Ferrous Gluconate 324 MG TAB PO SCH ×2 (08:39→17:22)
[2016-08-13] MEDS: Gabapentin 300 MG CAP PO SCH ×2 (08:39→20:30)
[2016-08-13] MEDS: TROSPIUM 20 MG TABLET PO SCH ×2 (08:39→20:30)
[2016-08-13] MEDS: Aspirin 325 mg Enteric Coated Tablet PO SCH (08:39)
[2016-08-13] MEDS: Clopidogrel Bisulfate 75 MG TAB PO SCH (08:39)
[2016-08-13] MEDS: Nystatin Powder 15 GM BOT TOP SCH ×2 (08:46→20:32)
[2016-08-13] MEDS: Nortriptyline HCl 25 MG CAP PO SCH (20:28)
[2016-08-13] MEDS: Acetaminophen/Codeine 30-300mg Tablet PO PRN (20:28)
[2016-08-13] MEDS: rOPINIRole HCl 0.25 MG TAB PO SCH (20:29)
[2016-08-13] MEDS: Temazepam 15 MG CAP PO SCH (20:29)
[2016-08-13] MEDS: Atorvastatin Calcium 10 MG TAB PO SCH (20:30)
[2016-08-13] MEDS: risperiDONE 0.5 MG TAB PO SCH (20:30)
[2016-08-14] MEDS: Ipratropium Bromide 2.5 ml Neb NEB SCH ×4 (00:47→17:05)
[2016-08-14 06:05] VITALS: TEMP 98.6
[2016-08-14] MEDS: Acetaminophen 325 MG TAB PO PRN ×2 (08:28→17:00)
[2016-08-14] MEDS: Clopidogrel Bisulfate 75 MG TAB PO SCH (08:28)
[2016-08-14] MEDS: Floranex Packet PO SCH (08:29)
[2016-08-14] MEDS: Gabapentin 300 MG CAP PO SCH (08:29)
[2016-08-14] MEDS: Ferrous Gluconate 324 MG TAB PO SCH ×2 (08:30→17:00)
[2016-08-14] MEDS: Aspirin 325 mg Enteric Coated Tablet PO SCH (08:30)
[2016-08-14] MEDS: Polyethylene Glycol 3350 17 GM Packet PO SCH (08:31)
[2016-08-14] MEDS: Nystatin Powder 15 GM BOT TOP SCH (08:34)
[2016-08-14] MEDS: TROSPIUM 20 MG TABLET PO SCH ×2 (11:52→12:38)
[2016-08-14 18:22] VITALS: BP 130/60
== END 2016-08-14 19:01 | DRG 689 ==
LOC: BURMED 19:47
PROVIDERS: ADMIT Family Medicine; ATTEND Family Medicine
DX: N39.0 Urinary tract infection, site not specified (principal); J18.9 Pneumonia, unspecified organism; I65.29 Occlusion and stenosis of unspecified carotid artery; J44.0 Chronic obstructive pulmonary disease with (acute) lower respiratory infection; D50.9 Iron deficiency anemia, unspecified; E11.9 Type 2 diabetes mellitus without complications; I10 Essential (primary) hypertension; E55.9 Vitamin D deficiency, unspecified; R53.1 Weakness; H04.129 Dry eye syndrome of unspecified lacrimal gland; M19.90 Unspecified osteoarthritis, unspecified site; H53.2 Diplopia; F31.9 Bipolar disorder, unspecified; Z91.81 History of falling; F41.9 Anxiety disorder, unspecified; G25.81 Restless legs syndrome; G47.33 Obstructive sleep apnea (adult) (pediatric); E78.5 Hyperlipidemia, unspecified; Z79.84 Long term (current) use of oral hypoglycemic drugs; I73.9 Peripheral vascular disease, unspecified; K21.9 Gastro-esophageal reflux disease without esophagitis; Z96.643 Presence of artificial hip joint, bilateral; Z96.652 Presence of left artificial knee joint; R32 Unspecified urinary incontinence; G89.29 Other chronic pain
CPT/HCPCS: 36416; 94640; G8978-GP-CK; G8979-GP-CI; G8987-GO-CK; G8988-GO-CI; J7644

== ENCOUNTER 2017-03-04 00:03 | Outpatient (CLI) | payer MEDICARE, BC, MEDICAID ==
[2017-03-04 06:46] LABS: #Basophils 0.1 thou/uL (0.0-0.2); #Eosinphils 0.2 thou/uL (0.0-0.7); #Lymphocytes 1.6 thou/uL (1.20-3.40); #Monocytes 0.7 thou/uL (0.11-0.59); #Neutrophils 6.9 thou/uL (1.40-6.50); %Basophils 1.2 % (0.0-1.0); %Eosinophils 2.3 % (0.0-10.0); %Monocytes 7.3 % (0.0-10.0); %Neutrophils 72.1 % (42.0-75.0); Hemoglobin 12.7 g/dL (12.0-16.0); Mean Corpuscular HGB CONC 31.9 g/dL (32.0-36.0); Mean Corpuscular Hemoglobin 30.7 pg (27.0-31.0); Mean Corpuscular Volume 96.1 fl (81.0-99.0); Mean Platelet Volume 7.2 fL (7.4-10.4); Platelet Count 326 thou/uL (130-400); RBC Distribution Width 12.5 % (11.5-14.5); Red Blood Cell (RBC) Count 4.16 mill/uL (4.20-5.40); White Blood Cell (WBC) Count 9.5 thou/uL (4.8-10.8)
== END 2017-03-04 00:04 | disposition home or self-care (01) ==
LOC: BURMANOR 00:03
PROVIDERS: ATTEND Clinical Nurse Specialist Medical-Surgical
DX: E78.5 Hyperlipidemia, unspecified (principal); I10 Essential (primary) hypertension
CPT/HCPCS: 36415; 85025

== ENCOUNTER 2017-04-08 00:58 | Outpatient (CLI) | payer MEDICARE, BC, MEDICAID ==
[2017-04-08 07:44] LABS: #Basophils 0.1 thou/uL (0.0-0.2); #Eosinphils 0.2 thou/uL (0.0-0.7); #Lymphocytes 1.7 thou/uL (1.20-3.40); #Monocytes 0.7 thou/uL (0.11-0.59); #Neutrophils 5.9 thou/uL (1.40-6.50); %Basophils 1.3 % (0.0-1.0); %Eosinophils 2.3 % (0.0-10.0); %Lymphocytes 19.8 % (21.0-51.0); %Monocytes 8.5 % (0.0-10.0); %Neutrophils 68.2 % (42.0-75.0); Hemoglobin 10.9 g/dL (12.0-16.0); Mean Corpuscular Hemoglobin 29.4 pg (27.0-31.0); Mean Corpuscular Volume 94.8 fl (81.0-99.0); Mean Platelet Volume 7.4 fL (7.4-10.4); Platelet Count 305 thou/uL (130-400); RBC Distribution Width 12.7 % (11.5-14.5); Red Blood Cell (RBC) Count 3.72 mill/uL (4.20-5.40); White Blood Cell (WBC) Count 8.6 thou/uL (4.8-10.8)
== END 2017-04-08 00:59 | disposition home or self-care (01) ==
LOC: BURMANOR 00:58
PROVIDERS: ATTEND Clinical Nurse Specialist Medical-Surgical
DX: E78.5 Hyperlipidemia, unspecified (principal); E11.9 Type 2 diabetes mellitus without complications
CPT/HCPCS: 36415; 85025

== ENCOUNTER 2017-11-19 13:59 | Outpatient (CLI) | payer MEDICARE, BC, MEDICAID ==
--- NOTE | 2017-11-19 18:52 | RAD ---
RIGHT HAND THREE VIEWS: 11/19/17 The study was done for evaluation of swelling without trauma. No fracture or area of bony destruction was seen. The carpal bones appear intact. The IP joints were unremarkable. IMPRESSION: No acute findings. POS: HOME
== END 2017-11-19 14:00 | disposition home or self-care (01) ==
LOC: BURRAD 13:59
PROVIDERS: ATTEND Nurse Practitioner Family
DX: R60.0 Localized edema (principal)

== ENCOUNTER 2018-07-12 11:06 | Outpatient (CLI) | payer MEDICARE, BC, MEDICAID ==
--- NOTE | 2018-07-12 11:44 | RAD ---
PELVIC RADIOGRAPH: DATE: 07/12/2018. PROVIDED CLINICAL HISTORY: Coccyx pain and tenderness. FINDINGS: Comparison 05/27/2012. Bilateral hip arthroplasty changes are seen without evidence for hardware com plication involving the visualized portions of either construct. Vascular calcifications and vascula r stent material are seen. The inferior sacrum and coccyx are obscured by bowel content. Given this limitation, there is no evidence for a fracture or other acute osseous abnormality. IMPRESSION: No evidence for an acute osseous abnormality with limitations as above. If there is persistent clini hilda concern, consider followup imaging. POS: [facility]
--- NOTE | 2018-07-12 12:13 | RAD ---
SACRUM AND COCCYX 2 VIEWS: HISTORY: Fall. Pain. COMPARISON: 09/13/2011. FINDINGS: There is acute kyphotic angulation at the sacrococcygeal junction with shaft width anterior displ acement through an oblique fracture. Osseous structures are demineralized. Sacral alae are intact. IMPRESSION: Mildly displaced sacrococcygeal fracture with anterior displacement. POS: [facility]
== END 2018-07-12 11:07 | disposition home or self-care (01) ==
LOC: BURRAD 11:06
PROVIDERS: ATTEND Family Medicine
DX: M53.3 Sacrococcygeal disorders, not elsewhere classified (principal); S32.10XA Unspecified fracture of sacrum, initial encounter for closed fracture; S32.2XXA Fracture of coccyx, initial encounter for closed fracture
CPT/HCPCS: 72170; 72220

== ENCOUNTER 2018-07-29 13:49 | Inpatient (IN) | payer MEDICARE, BC, MEDICAID ==
[2018-07-29] MEDS ORDERED: Polyethylene Glycol OPTH DROP 15 ML BOT EA EYE PRN (16:43)
[2018-07-29] MEDS ORDERED: Temazepam 15 MG CAP PO PRN (16:43)
[2018-07-29] MEDS ORDERED: traMADol HCl 50 MG TAB PO PRN (16:43)
[2018-07-29] MEDS ORDERED: Albuterol Sulfate 1.25 MG/3 ML NEB NEB PRN (16:43)
[2018-07-29] MEDS ORDERED: Ondansetron ODT 4 MG TAB SL PRN (16:43)
[2018-07-29] MEDS ORDERED: Acetaminophen 325 MG TAB PO PRN (16:43)
[2018-07-29] MEDS ORDERED: HumaLOG 300 UNITS/3 ML VIAL SC PRN (16:43)
[2018-07-29] MEDS ORDERED: Mag-Al Plus 1200 MG/1200 MG/120 MG/30 ML UDCUP PO PRN (16:43)
[2018-07-29] MEDS ORDERED: Bisacodyl 10 MG SUPP PR PRN (16:43)
[2018-07-29] MEDS ORDERED: Milk Of Magnesia 30 ML UDCUP PO PRN (16:43)
[2018-07-29] MEDS ORDERED: Non-Formulary Item 1 EACH (Fexofenadine Hcl [Allegra Allergy] 180 MG) PO PRN (16:43)
[2018-07-29] MEDS ORDERED: Artificial Tear Sol 15 ML BOT EA EYE PRN (16:43)
[2018-07-29] MEDS ORDERED: Loratadine 10 MG TAB PO PRN (19:42)
[2018-07-29] MEDS ORDERED: metFORMIN 500 MG TAB PO SCH (19:45)
[2018-07-29] MEDS: rOPINIRole HCl 0.25 MG TAB PO SCH (20:20)
[2018-07-29] MEDS: risperiDONE 0.5 MG TAB PO SCH (20:21)
[2018-07-29] MEDS: Multivitamin W/ Minerals 1 TAB PO SCH (20:21)
[2018-07-29] MEDS: Nortriptyline HCl 25 MG CAP PO SCH (20:21)
[2018-07-29] MEDS: guaiFENesin ER 600 MG TAB PO SCH (20:21)
[2018-07-29] MEDS: Ferrous Gluconate 324 MG TAB PO SCH (20:21)
[2018-07-29] MEDS: Atorvastatin Calcium 10 MG TAB PO SCH (20:22)
[2018-07-29] MEDS: Gabapentin 300 MG CAP PO SCH (20:22)
[2018-07-29] MEDS: Melatonin 3 MG TAB PO SCH (20:22)
[2018-07-29] MEDS: Cefdinir 300 MG CAP PO SCH (20:22)
[2018-07-29] MEDS: Acetaminophen/Codeine 30-300mg Tablet PO PRN (21:29)
[2018-07-30] MEDS: Budesonide 0.5 MG/2 ML NEB NEB SCH ×2 (06:26→19:00)
[2018-07-30] MEDS: Acetaminophen/Codeine 30-300mg Tablet PO PRN ×2 (08:52→20:39)
[2018-07-30] MEDS ORDERED: Spiriva 18 MCG CAP (Box of 5 Caps) INH SCH (09:00)
[2018-07-30] MEDS: Polyethylene Glycol 3350 17 GM Packet PO SCH (09:21)
[2018-07-30] MEDS: guaiFENesin ER 600 MG TAB PO SCH ×2 (09:25→20:37)
[2018-07-30] MEDS: Ascorbic Acid 500 mg Chewable Tablet PO SCH (09:25)
[2018-07-30] MEDS: DULoxetine 30 MG CAP PO SCH (09:25)
[2018-07-30] MEDS: Clopidogrel Bisulfate 75 MG TAB PO SCH (09:25)
[2018-07-30] MEDS: Aspirin 325 mg Enteric Coated Tablet PO SCH (09:25)
[2018-07-30] MEDS: metFORMIN 500 MG TAB PO SCH ×2 (09:25→17:44)
[2018-07-30] MEDS: Nortriptyline HCl 25 MG CAP PO SCH ×2 (09:26→20:39)
[2018-07-30] MEDS: Ferrous Gluconate 324 MG TAB PO SCH ×2 (09:26→20:36)
[2018-07-30] MEDS: Gabapentin 300 MG CAP PO SCH ×2 (09:26→20:36)
[2018-07-30] MEDS: Multivitamin W/ Minerals 1 TAB PO SCH ×2 (09:27→20:38)
[2018-07-30] MEDS: Cefdinir 300 MG CAP PO SCH ×2 (09:27→20:36)
[2018-07-30] MEDS: Nicotine 21 MG PATCH TD SCH (15:23)
[2018-07-30] MEDS: Meloxicam 7.5 MG TAB PO PRN (16:21)
[2018-07-30] MEDS: Atorvastatin Calcium 10 MG TAB PO SCH (20:37)
[2018-07-30] MEDS: risperiDONE 0.5 MG TAB PO SCH (20:38)
[2018-07-30] MEDS: rOPINIRole HCl 0.25 MG TAB PO SCH (20:38)
[2018-07-30] MEDS: Melatonin 3 MG TAB PO SCH (20:46)
[2018-07-31] MEDS: Budesonide 0.5 MG/2 ML NEB NEB SCH ×2 (06:25→18:24)
[2018-07-31] MEDS: Cefdinir 300 MG CAP PO SCH ×2 (10:17→21:30)
[2018-07-31] MEDS: DULoxetine 30 MG CAP PO SCH (10:17)
[2018-07-31] MEDS: metFORMIN 500 MG TAB PO SCH ×2 (10:18→17:11)
[2018-07-31] MEDS: Gabapentin 300 MG CAP PO SCH ×2 (10:18→21:32)
[2018-07-31] MEDS: Ascorbic Acid 500 mg Chewable Tablet PO SCH (10:18)
[2018-07-31] MEDS: Multivitamin W/ Minerals 1 TAB PO SCH ×2 (10:18→21:31)
[2018-07-31] MEDS: Ferrous Gluconate 324 MG TAB PO SCH ×2 (10:18→21:33)
[2018-07-31] MEDS: Aspirin 325 mg Enteric Coated Tablet PO SCH (10:18)
[2018-07-31] MEDS: guaiFENesin ER 600 MG TAB PO SCH ×2 (10:18→21:32)
[2018-07-31] MEDS: Clopidogrel Bisulfate 75 MG TAB PO SCH (10:18)
[2018-07-31] MEDS: Nortriptyline HCl 25 MG CAP PO SCH ×2 (10:19→21:32)
[2018-07-31] MEDS: Polyethylene Glycol 3350 17 GM Packet PO SCH (10:19)
[2018-07-31] MEDS: Nicotine 21 MG PATCH TD SCH (10:19)
[2018-07-31] MEDS: HumaLOG 300 UNITS/3 ML VIAL SC PRN (13:51)
[2018-07-31] MEDS: Acetaminophen/Codeine 30-300mg Tablet PO PRN (15:27)
[2018-07-31] MEDS: rOPINIRole HCl 0.25 MG TAB PO SCH (21:30)
[2018-07-31] MEDS: Atorvastatin Calcium 10 MG TAB PO SCH (21:30)
[2018-07-31] MEDS: risperiDONE 0.5 MG TAB PO SCH (21:31)
[2018-07-31] MEDS: Melatonin 3 MG TAB PO SCH (21:34)
[2018-08-01] MEDS: Budesonide 0.5 MG/2 ML NEB NEB SCH ×2 (06:02→17:23)
[2018-08-01] MEDS: Polyethylene Glycol 3350 17 GM Packet PO SCH (11:05)
[2018-08-01] MEDS: Cefdinir 300 MG CAP PO SCH ×2 (11:05→21:01)
[2018-08-01] MEDS: DULoxetine 30 MG CAP PO SCH (11:06)
[2018-08-01] MEDS: Aspirin 325 mg Enteric Coated Tablet PO SCH (11:06)
[2018-08-01] MEDS: Multivitamin W/ Minerals 1 TAB PO SCH ×2 (11:06→21:02)
[2018-08-01] MEDS: guaiFENesin ER 600 MG TAB PO SCH ×2 (11:06→21:02)
[2018-08-01] MEDS: Ferrous Gluconate 324 MG TAB PO SCH ×2 (11:06→21:01)
[2018-08-01] MEDS: metFORMIN 500 MG TAB PO SCH ×2 (11:06→17:24)
[2018-08-01] MEDS: Clopidogrel Bisulfate 75 MG TAB PO SCH (11:07)
[2018-08-01] MEDS: Nortriptyline HCl 25 MG CAP PO SCH ×2 (11:07→21:02)
[2018-08-01] MEDS: Gabapentin 300 MG CAP PO SCH ×2 (11:07→21:02)
[2018-08-01] MEDS: Ascorbic Acid 500 mg Chewable Tablet PO SCH (11:07)
[2018-08-01] MEDS: Nicotine 21 MG PATCH TD SCH (11:08)
[2018-08-01] MEDS: Acetaminophen/Codeine 30-300mg Tablet PO PRN (11:31)
[2018-08-01] MEDS: Cranberry [Cranberry] 500 MG PO SCH ×3 (12:07→12:32)
[2018-08-01] MEDS: Meloxicam 7.5 MG TAB PO PRN (17:29)
[2018-08-01] MEDS: HumaLOG 300 UNITS/3 ML VIAL SC PRN (18:34)
[2018-08-01] MEDS: Atorvastatin Calcium 10 MG TAB PO SCH (21:01)
[2018-08-01] MEDS: rOPINIRole HCl 0.25 MG TAB PO SCH (21:01)
[2018-08-01] MEDS: risperiDONE 0.5 MG TAB PO SCH (21:02)
[2018-08-01] MEDS: Melatonin 3 MG TAB PO SCH (21:04)
[2018-08-02] MEDS: Budesonide 0.5 MG/2 ML NEB NEB SCH ×2 (05:22→17:16)
[2018-08-02 06:20] VITALS: BMI 22.3
[2018-08-02] MEDS: metFORMIN 500 MG TAB PO SCH ×2 (08:03→17:23)
[2018-08-02] MEDS: HumaLOG 300 UNITS/3 ML VIAL SC PRN ×2 (09:14→17:42)
[2018-08-02] MEDS: Ascorbic Acid 500 mg Chewable Tablet PO SCH (09:19)
[2018-08-02] MEDS: Clopidogrel Bisulfate 75 MG TAB PO SCH (09:21)
[2018-08-02] MEDS: DULoxetine 30 MG CAP PO SCH (09:21)
[2018-08-02] MEDS: guaiFENesin ER 600 MG TAB PO SCH ×2 (09:22→20:51)
[2018-08-02] MEDS: Aspirin 325 mg Enteric Coated Tablet PO SCH (09:22)
[2018-08-02] MEDS: Multivitamin W/ Minerals 1 TAB PO SCH ×2 (09:22→20:52)
[2018-08-02] MEDS: Nortriptyline HCl 25 MG CAP PO SCH ×2 (09:23→20:52)
[2018-08-02] MEDS: Ferrous Gluconate 324 MG TAB PO SCH ×2 (09:24→20:49)
[2018-08-02] MEDS: Gabapentin 300 MG CAP PO SCH ×2 (09:24→20:51)
[2018-08-02] MEDS: Cefdinir 300 MG CAP PO SCH ×2 (09:26→20:52)
[2018-08-02] MEDS: Polyethylene Glycol 3350 17 GM Packet PO SCH (09:41)
[2018-08-02] MEDS: Nicotine 21 MG PATCH TD SCH (09:42)
[2018-08-02] MEDS: Acetaminophen/Codeine 30-300mg Tablet PO PRN (09:51)
[2018-08-02] MEDS: Senokot 8.6 MG TAB PO PRN (14:57)
[2018-08-02] MEDS ORDERED: traMADol HCl 50 MG TAB PO PRN ×2 (15:23→15:28)
[2018-08-02] MEDS ORDERED: traMADol HCl 50 MG TAB ONE (15:35)
[2018-08-02] MEDS: rOPINIRole HCl 0.25 MG TAB PO SCH (20:49)
[2018-08-02] MEDS: Melatonin 3 MG TAB PO SCH (20:50)
[2018-08-02] MEDS: risperiDONE 0.5 MG TAB PO SCH (20:51)
[2018-08-02] MEDS: Atorvastatin Calcium 10 MG TAB PO SCH (20:52)
[2018-08-03] MEDS: Budesonide 0.5 MG/2 ML NEB NEB SCH ×2 (04:34→16:53)
[2018-08-03] MEDS: metFORMIN 500 MG TAB PO SCH ×2 (08:59→16:52)
[2018-08-03] MEDS: Ferrous Gluconate 324 MG TAB PO SCH ×2 (08:59→20:56)
[2018-08-03] MEDS: guaiFENesin ER 600 MG TAB PO SCH ×2 (08:59→20:56)
[2018-08-03] MEDS: DULoxetine 30 MG CAP PO SCH (09:00)
[2018-08-03] MEDS: Ascorbic Acid 500 mg Chewable Tablet PO SCH (09:00)
[2018-08-03] MEDS: Multivitamin W/ Minerals 1 TAB PO SCH ×2 (09:01→20:56)
[2018-08-03] MEDS: Nortriptyline HCl 25 MG CAP PO SCH ×2 (09:01→20:56)
[2018-08-03] MEDS: Polyethylene Glycol 3350 17 GM Packet PO SCH (09:01)
[2018-08-03] MEDS: Gabapentin 300 MG CAP PO SCH ×2 (09:01→20:56)
[2018-08-03] MEDS: Clopidogrel Bisulfate 75 MG TAB PO SCH (09:01)
[2018-08-03] MEDS: Aspirin 325 mg Enteric Coated Tablet PO SCH (09:02)
[2018-08-03] MEDS: Nicotine 21 MG PATCH TD SCH (09:02)
[2018-08-03] MEDS: Acetaminophen/Codeine 30-300mg Tablet PO PRN ×2 (09:41→16:51)
[2018-08-03] MEDS: traMADol HCl 50 MG TAB PO PRN (11:37)
[2018-08-03] MEDS: risperiDONE 0.5 MG TAB PO SCH (20:56)
[2018-08-03] MEDS: Atorvastatin Calcium 10 MG TAB PO SCH (20:56)
[2018-08-03] MEDS: rOPINIRole HCl 0.25 MG TAB PO SCH (20:56)
[2018-08-03] MEDS: Melatonin 3 MG TAB PO SCH (20:56)
[2018-08-04] MEDS: Acetaminophen/Codeine 30-300mg Tablet PO PRN ×3 (02:19→17:28)
[2018-08-04] MEDS: Budesonide 0.5 MG/2 ML NEB NEB SCH ×2 (05:10→17:22)
[2018-08-04] MEDS: metFORMIN 500 MG TAB PO SCH ×2 (08:51→17:20)
[2018-08-04] MEDS: Clopidogrel Bisulfate 75 MG TAB PO SCH (09:16)
[2018-08-04] MEDS: Aspirin 325 mg Enteric Coated Tablet PO SCH (09:17)
[2018-08-04] MEDS: Ferrous Gluconate 324 MG TAB PO SCH ×2 (09:17→20:38)
[2018-08-04] MEDS: DULoxetine 30 MG CAP PO SCH (09:17)
[2018-08-04] MEDS: Gabapentin 300 MG CAP PO SCH ×2 (09:18→20:38)
[2018-08-04] MEDS: Polyethylene Glycol 3350 17 GM Packet PO SCH (09:18)
[2018-08-04] MEDS: guaiFENesin ER 600 MG TAB PO SCH ×2 (09:18→20:38)
[2018-08-04] MEDS: Multivitamin W/ Minerals 1 TAB PO SCH ×2 (09:18→20:38)
[2018-08-04] MEDS: Ascorbic Acid 500 mg Chewable Tablet PO SCH (09:18)
[2018-08-04] MEDS: Nortriptyline HCl 25 MG CAP PO SCH ×2 (09:18→20:38)
[2018-08-04] MEDS: Nicotine 21 MG PATCH TD SCH (09:19)
[2018-08-04] MEDS: HumaLOG 300 UNITS/3 ML VIAL SC PRN (11:41)
[2018-08-04] MEDS: Senokot 8.6 MG TAB PO PRN (12:18)
[2018-08-04] MEDS: rOPINIRole HCl 0.25 MG TAB PO SCH (20:38)
[2018-08-04] MEDS: Melatonin 3 MG TAB PO SCH (20:38)
[2018-08-04] MEDS: Atorvastatin Calcium 10 MG TAB PO SCH (20:38)
[2018-08-04] MEDS: risperiDONE 0.5 MG TAB PO SCH (20:39)
[2018-08-05] MEDS: Acetaminophen/Codeine 30-300mg Tablet PO PRN ×2 (01:22→09:20)
[2018-08-05] MEDS: Budesonide 0.5 MG/2 ML NEB NEB SCH ×2 (04:38→17:03)
[2018-08-05] MEDS: Nicotine 21 MG PATCH TD SCH (09:22)
[2018-08-05] MEDS: Polyethylene Glycol 3350 17 GM Packet PO SCH (09:22)
[2018-08-05] MEDS: DULoxetine 30 MG CAP PO SCH (09:25)
[2018-08-05] MEDS: Gabapentin 300 MG CAP PO SCH ×2 (09:25→21:20)
[2018-08-05] MEDS: Aspirin 325 mg Enteric Coated Tablet PO SCH (09:25)
[2018-08-05] MEDS: Ferrous Gluconate 324 MG TAB PO SCH ×2 (09:25→21:20)
[2018-08-05] MEDS: Clopidogrel Bisulfate 75 MG TAB PO SCH (09:25)
[2018-08-05] MEDS: metFORMIN 500 MG TAB PO SCH ×2 (09:25→17:05)
[2018-08-05] MEDS: Nortriptyline HCl 25 MG CAP PO SCH ×2 (09:26→21:20)
[2018-08-05] MEDS: Multivitamin W/ Minerals 1 TAB PO SCH ×2 (09:26→21:20)
[2018-08-05] MEDS: Ascorbic Acid 500 mg Chewable Tablet PO SCH (09:26)
[2018-08-05] MEDS: guaiFENesin ER 600 MG TAB PO SCH ×2 (09:26→21:20)
[2018-08-05] MEDS: Meloxicam 7.5 MG TAB PO PRN (14:40)
[2018-08-05] MEDS: HumaLOG 300 UNITS/3 ML VIAL SC PRN ×2 (15:25→17:26)
[2018-08-05] MEDS: rOPINIRole HCl 0.25 MG TAB PO SCH (21:19)
[2018-08-05] MEDS: risperiDONE 0.5 MG TAB PO SCH (21:20)
[2018-08-05] MEDS: Atorvastatin Calcium 10 MG TAB PO SCH (21:20)
[2018-08-05] MEDS: Melatonin 3 MG TAB PO SCH (21:20)
[2018-08-06] MEDS: Budesonide 0.5 MG/2 ML NEB NEB SCH ×2 (04:58→17:47)
[2018-08-06] MEDS: Polyethylene Glycol 3350 17 GM Packet PO SCH (10:01)
[2018-08-06] MEDS: Nicotine 21 MG PATCH TD SCH (10:01)
[2018-08-06] MEDS: metFORMIN 500 MG TAB PO SCH ×2 (10:02→17:47)
[2018-08-06] MEDS: Ferrous Gluconate 324 MG TAB PO SCH ×2 (10:02→22:54)
[2018-08-06] MEDS: DULoxetine 30 MG CAP PO SCH (10:02)
[2018-08-06] MEDS: Nortriptyline HCl 25 MG CAP PO SCH ×2 (10:03→22:54)
[2018-08-06] MEDS: Gabapentin 300 MG CAP PO SCH ×2 (10:03→22:53)
[2018-08-06] MEDS: guaiFENesin ER 600 MG TAB PO SCH ×2 (10:03→22:53)
[2018-08-06] MEDS: Ascorbic Acid 500 mg Chewable Tablet PO SCH (10:03)
[2018-08-06] MEDS: Multivitamin W/ Minerals 1 TAB PO SCH ×2 (10:03→22:55)
[2018-08-06] MEDS: Aspirin 325 mg Enteric Coated Tablet PO SCH (10:03)
[2018-08-06] MEDS: Clopidogrel Bisulfate 75 MG TAB PO SCH (10:04)
[2018-08-06] MEDS: Acetaminophen/Codeine 30-300mg Tablet PO PRN ×2 (12:01→22:52)
[2018-08-06] MEDS: Meloxicam 7.5 MG TAB PO PRN (19:49)
[2018-08-06] MEDS: rOPINIRole HCl 0.25 MG TAB PO SCH (22:54)
[2018-08-06] MEDS: Atorvastatin Calcium 10 MG TAB PO SCH (22:54)
[2018-08-06] MEDS: risperiDONE 0.5 MG TAB PO SCH (22:54)
[2018-08-06] MEDS: Melatonin 3 MG TAB PO SCH (22:54)
[2018-08-07] MEDS: Budesonide 0.5 MG/2 ML NEB NEB SCH ×2 (04:13→19:01)
[2018-08-07] MEDS: Acetaminophen/Codeine 30-300mg Tablet PO PRN ×2 (09:41→21:03)
[2018-08-07] MEDS: DULoxetine 30 MG CAP PO SCH (09:44)
[2018-08-07] MEDS: metFORMIN 500 MG TAB PO SCH ×2 (09:45→18:57)
[2018-08-07] MEDS: Clopidogrel Bisulfate 75 MG TAB PO SCH (09:45)
[2018-08-07] MEDS: Ascorbic Acid 500 mg Chewable Tablet PO SCH (09:45)
[2018-08-07] MEDS: Gabapentin 300 MG CAP PO SCH ×2 (09:45→20:54)
[2018-08-07] MEDS: Nortriptyline HCl 25 MG CAP PO SCH ×2 (09:45→20:54)
[2018-08-07] MEDS: Ferrous Gluconate 324 MG TAB PO SCH ×2 (09:45→20:54)
[2018-08-07] MEDS: Aspirin 325 mg Enteric Coated Tablet PO SCH (09:45)
[2018-08-07] MEDS: guaiFENesin ER 600 MG TAB PO SCH ×2 (09:45→20:54)
[2018-08-07] MEDS: Polyethylene Glycol 3350 17 GM Packet PO SCH (09:45)
[2018-08-07] MEDS: Multivitamin W/ Minerals 1 TAB PO SCH ×2 (09:45→20:54)
[2018-08-07] MEDS: Nicotine 21 MG PATCH TD SCH (09:46)
[2018-08-07] MEDS: rOPINIRole HCl 0.25 MG TAB PO SCH (20:54)
[2018-08-07] MEDS: risperiDONE 0.5 MG TAB PO SCH (20:54)
[2018-08-07] MEDS: Atorvastatin Calcium 10 MG TAB PO SCH (20:54)
[2018-08-07] MEDS: Melatonin 3 MG TAB PO SCH (20:54)
[2018-08-08] MEDS: Budesonide 0.5 MG/2 ML NEB NEB SCH ×2 (04:17→18:09)
[2018-08-08] MEDS: metFORMIN 500 MG TAB PO SCH ×2 (08:53→18:09)
[2018-08-08] MEDS: Nicotine 21 MG PATCH TD SCH (09:46)
[2018-08-08] MEDS: guaiFENesin ER 600 MG TAB PO SCH ×2 (09:46→22:21)
[2018-08-08] MEDS: Nortriptyline HCl 25 MG CAP PO SCH ×2 (09:47→22:22)
[2018-08-08] MEDS: Ferrous Gluconate 324 MG TAB PO SCH ×2 (09:47→22:21)
[2018-08-08] MEDS: Multivitamin W/ Minerals 1 TAB PO SCH ×2 (09:47→22:21)
[2018-08-08] MEDS: Gabapentin 300 MG CAP PO SCH ×2 (09:47→22:21)
[2018-08-08] MEDS: Ascorbic Acid 500 mg Chewable Tablet PO SCH (09:48)
[2018-08-08] MEDS: DULoxetine 30 MG CAP PO SCH (09:48)
[2018-08-08] MEDS: Polyethylene Glycol 3350 17 GM Packet PO SCH (09:48)
[2018-08-08] MEDS: Aspirin 325 mg Enteric Coated Tablet PO SCH (09:48)
[2018-08-08] MEDS: Clopidogrel Bisulfate 75 MG TAB PO SCH (09:48)
[2018-08-08] MEDS: Acetaminophen/Codeine 30-300mg Tablet PO PRN ×2 (12:46→19:14)
[2018-08-08] MEDS: rOPINIRole HCl 0.25 MG TAB PO SCH (22:20)
[2018-08-08] MEDS: risperiDONE 0.5 MG TAB PO SCH (22:21)
[2018-08-08] MEDS: Melatonin 3 MG TAB PO SCH (22:21)
[2018-08-08] MEDS: Atorvastatin Calcium 10 MG TAB PO SCH (22:21)
[2018-08-09] MEDS: Budesonide 0.5 MG/2 ML NEB NEB SCH ×2 (04:56→17:35)
[2018-08-09 04:57] LABS: #Basophils 0.1 thou/uL (0.0-0.2); #Eosinphils 0.2 thou/uL (0.0-0.7); #Lymphocytes 1.5 thou/uL (1.20-3.40); #Monocytes 0.8 thou/uL (0.11-0.59); #Neutrophils 5.1 thou/uL (1.40-6.50); %Basophils 1.6 % (0.0-1.0); %Eosinophils 3.2 % (0.0-10.0); %Lymphocytes 19.3 % (21.0-51.0); %Monocytes 9.8 % (0.0-10.0); %Neutrophils 66.2 % (42.0-75.0); Hemoglobin 9.2 g/dL (12.0-16.0); Mean Corpuscular HGB CONC 32.3 g/dL (32.0-36.0); Mean Corpuscular Hemoglobin 30.8 pg (27.0-31.0); Mean Corpuscular Volume 95.4 fL (78.0-98.0); Mean Platelet Volume 6.7 fL (7.4-10.4); Platelet Count 360 thou/uL (130-400); RBC Distribution Width 13.5 % (11.5-14.5); Red Blood Cell (RBC) Count 2.99 mill/uL (4.20-5.40); White Blood Cell (WBC) Count 7.7 thou/uL (4.8-10.8)
[2018-08-09 05:17] LABS: Anion Gap 16 mmol/L (10-20); BUN (Urea Nitrogen) 22 mg/dL (9.8-20.1); Calc. Creatinine Clearance 60 mL/min (70-130); Calcium 10.3 mg/dL (7.8-10.44); Carbon Dioxide 24 mmol/L (23-31); Chloride 104 mmol/L (98-107); Estimated GFR-MDRD 70; Glucose 96 mg/dL (83-110); Potassium 4.7 mmol/L (3.5-5.1); Sodium 139 mmol/L (136-145)
[2018-08-09] MEDS: metFORMIN 500 MG TAB PO SCH ×2 (08:46→17:32)
[2018-08-09] MEDS: Acetaminophen/Codeine 30-300mg Tablet PO PRN ×2 (08:59→17:33)
[2018-08-09] MEDS: Nortriptyline HCl 25 MG CAP PO SCH ×2 (09:02→20:37)
[2018-08-09] MEDS: Ascorbic Acid 500 mg Chewable Tablet PO SCH (09:02)
[2018-08-09] MEDS: Aspirin 325 mg Enteric Coated Tablet PO SCH (09:02)
[2018-08-09] MEDS: DULoxetine 30 MG CAP PO SCH (09:03)
[2018-08-09] MEDS: guaiFENesin ER 600 MG TAB PO SCH ×2 (09:03→20:37)
[2018-08-09] MEDS: Clopidogrel Bisulfate 75 MG TAB PO SCH (09:03)
[2018-08-09] MEDS: Ferrous Gluconate 324 MG TAB PO SCH ×2 (09:03→20:37)
[2018-08-09] MEDS: Gabapentin 300 MG CAP PO SCH ×2 (09:03→20:37)
[2018-08-09] MEDS: Multivitamin W/ Minerals 1 TAB PO SCH ×2 (09:05→20:37)
[2018-08-09] MEDS: Polyethylene Glycol 3350 17 GM Packet PO SCH (09:08)
[2018-08-09] MEDS: Nicotine 21 MG PATCH TD SCH (09:08)
[2018-08-09] MEDS: rOPINIRole HCl 0.25 MG TAB PO SCH (20:36)
[2018-08-09] MEDS: Melatonin 3 MG TAB PO SCH (20:37)
[2018-08-09] MEDS: risperiDONE 0.5 MG TAB PO SCH (20:37)
[2018-08-09] MEDS: Atorvastatin Calcium 10 MG TAB PO SCH (20:37)
[2018-08-10] MEDS: Budesonide 0.5 MG/2 ML NEB NEB SCH (04:43)
[2018-08-10 07:03] VITALS: BP 129/60; TEMP 98.2
[2018-08-10] MEDS: Aspirin 325 mg Enteric Coated Tablet PO SCH (08:45)
[2018-08-10] MEDS: metFORMIN 500 MG TAB PO SCH (08:45)
[2018-08-10] MEDS: DULoxetine 30 MG CAP PO SCH (08:45)
[2018-08-10] MEDS: Ferrous Gluconate 324 MG TAB PO SCH (09:09)
[2018-08-10] MEDS: Multivitamin W/ Minerals 1 TAB PO SCH (09:09)
[2018-08-10] MEDS: Nortriptyline HCl 25 MG CAP PO SCH (09:09)
[2018-08-10] MEDS: Ascorbic Acid 500 mg Chewable Tablet PO SCH (09:10)
[2018-08-10] MEDS: Acetaminophen/Codeine 30-300mg Tablet PO PRN (09:10)
[2018-08-10] MEDS: Clopidogrel Bisulfate 75 MG TAB PO SCH (09:10)
[2018-08-10] MEDS: Gabapentin 300 MG CAP PO SCH (09:10)
[2018-08-10] MEDS: guaiFENesin ER 600 MG TAB PO SCH (09:10)
[2018-08-10] MEDS: Nicotine 21 MG PATCH TD SCH (09:13)
[2018-08-10] MEDS: Polyethylene Glycol 3350 17 GM Packet PO SCH (09:14)
[2018-08-10] MEDS: traMADol HCl 50 MG TAB PO PRN (12:20)
== END 2018-08-10 14:00 | DRG 689 ==
LOC: BURMED 14:25
PROVIDERS: ADMIT Family Medicine; ATTEND Family Medicine
DX: N39.0 Urinary tract infection, site not specified (principal); L89.153 Pressure ulcer of sacral region, stage 3; G93.41 Metabolic encephalopathy; N17.9 Acute kidney failure, unspecified; F31.9 Bipolar disorder, unspecified; R33.9 Retention of urine, unspecified; F17.210 Nicotine dependence, cigarettes, uncomplicated; E78.5 Hyperlipidemia, unspecified; E11.9 Type 2 diabetes mellitus without complications; I10 Essential (primary) hypertension; F41.9 Anxiety disorder, unspecified; Z91.81 History of falling; I73.9 Peripheral vascular disease, unspecified; I65.29 Occlusion and stenosis of unspecified carotid artery; J44.9 Chronic obstructive pulmonary disease, unspecified; E87.5 Hyperkalemia; Z88.8 Allergy status to other drugs, medicaments and biological substances; M19.90 Unspecified osteoarthritis, unspecified site; G47.00 Insomnia, unspecified; I50.9 Heart failure, unspecified; G25.81 Restless legs syndrome; G89.29 Other chronic pain; K21.9 Gastro-esophageal reflux disease without esophagitis; J30.9 Allergic rhinitis, unspecified; Z96.652 Presence of left artificial knee joint; Z96.643 Presence of artificial hip joint, bilateral; Z79.899 Other long term (current) drug therapy; Z79.82 Long term (current) use of aspirin; Z79.02 Long term (current) use of antithrombotics/antiplatelets; B96.20 Unspecified Escherichia coli [E. coli] as the cause of diseases classified elsewhere; B96.5 Pseudomonas (aeruginosa) (mallei) (pseudomallei) as the cause of diseases classified elsewhere; T36.95XA Adverse effect of unspecified systemic antibiotic, initial encounter
CPT/HCPCS: 36415; 36416; 80048; 85025; 97602; A4353; J7620; J7626

== ENCOUNTER 2019-02-10 16:43 | Outpatient (CLI) | payer MEDICARE, BC, OTHER ==
[2019-02-11 11:50] LABS: Bacteria/HPF 4+ HPF (None Seen); Bilirubin Negative (Negative); Blood, Urine Negative (Negative); Clarity Turbid (Clear); Glucose, Urine (Dipstick) Normal (Negative); Leukocyte 250 Leu/uL (Negative); Nitrite 2+ (Negative); Protein, Urine (Dipstick) 100 mg/dL (Neg-Trace); RBC/HPF 0-3 HPF (0-3); Squamous Epithelial 0-3 HPF (0-3); Urobilinogen Normal mg/dL (Less than 2); WBC/HPF 21-50 HPF (0-3)
== END 2019-02-10 16:44 | disposition home or self-care (01) ==
LOC: BURLABSP 16:43 → BURMANOR 16:43
PROVIDERS: ATTEND Family Medicine
DX: R41.82 Altered mental status, unspecified (principal)
CPT/HCPCS: 81001; 87077; 87086; 87186

== ENCOUNTER 2019-04-11 17:00 | Emergency (ER) | payer MEDICARE, BC, MEDICAID ==
[2019-04-11] MEDS ORDERED: Acetaminophen/Codeine 30-300mg Tablet ONE (17:09)
[2019-04-11] MEDS ORDERED: Amoxicillin/Potassium Clav 875 MG TAB ONE (17:50)
[2019-04-11] MEDS ORDERED: Azithromycin 250 MG TAB ONE (17:50)
--- NOTE | 2019-04-11 21:17 | RAD ---
CHEST TWO VIEWS: Date: 04-11-19 FINDINGS: The heart is minimally enlarged and unchanged in size. There are no signs of vascular congestion or e bi. There are some chronically prominent interstitial changes, particularly around the right hilum. These seem no different than before. Calcified granulomas are noted in the lung apices. As noted on the prior study, there are some questionable nodular densities overlying some of the left ribs. A CT would be needed to discern if this finding is real and/or significant. This might be considered elect ively. IMPRESSION: 1. Chronic changes but no acute findings. 2. There are still some vague nodular areas in the left midlung zone that seem no different than befo re. It might be well to consider an elective CT to look at the area. Code T POS: HOME
== END 2019-04-11 18:31 | disposition home or self-care (01) ==
LOC: BURERS 17:00
DX: J18.9 Pneumonia, unspecified organism (principal); E11.9 Type 2 diabetes mellitus without complications; F03.90 Unspecified dementia, unspecified severity, without behavioral disturbance, psychotic disturbance, mood disturbance, and anxiety; G47.30 Sleep apnea, unspecified; D64.9 Anemia, unspecified; M81.0 Age-related osteoporosis without current pathological fracture; E78.5 Hyperlipidemia, unspecified; I10 Essential (primary) hypertension; I25.10 Atherosclerotic heart disease of native coronary artery without angina pectoris; J44.9 Chronic obstructive pulmonary disease, unspecified; F41.9 Anxiety disorder, unspecified; F32.9 Major depressive disorder, single episode, unspecified; Z79.899 Other long term (current) drug therapy; Z79.82 Long term (current) use of aspirin; Z79.84 Long term (current) use of oral hypoglycemic drugs
CPT/HCPCS: 71045